=== PATIENT | female | born 1990 | race Caucasian/White ===

== ENCOUNTER 2022-02-26 04:00 | Inpatient (IN) | payer OTHER ==
[2022-02-26] MEDS ORDERED: Succinylcholine 200 MG/10 ml SYRINGE FS ONE ×2 (04:03→04:06)
[2022-02-26] MEDS ORDERED: PROPOFOL 200 MG/20 ML VIAL ONE (04:06)
[2022-02-26] MEDS ORDERED: Propofol 1,000 MG/100 ML VIAL IV ONE (04:12)
[2022-02-26] MEDS ORDERED: Midazolam HCl 2 mg/2 ml Vial ONE ×3 (04:17→04:48)
[2022-02-26] MEDS ORDERED: Fentanyl 100 MCG/2 ML VIAL ONE ×2 (04:17→05:14)
[2022-02-26 04:19] LABS: #Basophils 0.1 thou/uL (0.0-0.2); #Eosinphils 0.1 thou/uL (0.0-0.7); #Lymphocytes 4.5 thou/uL (1.20-3.40); #Monocytes 0.4 thou/uL (0.11-0.59); #Neutrophils 7.7 thou/uL (1.40-6.50); %Basophils 0.8 % (0.0-1.0); %Eosinophils 0.5 % (0.0-10.0); %Lymphocytes 35.3 % (21.0-51.0); %Monocytes 3.3 % (0.0-10.0); %Neutrophils 60.1 % (42.0-75.0); Hemoglobin 12.7 g/dL (12.0-16.0); Mean Corpuscular HGB CONC 32.5 g/dL (32.0-36.0); Mean Corpuscular Hemoglobin 34.4 pg (27.0-31.0); Mean Platelet Volume 8.2 fL (7.4-10.4); Platelet Count 353 thou/uL (130-400); RBC Distribution Width 13.1 % (11.5-14.5); Red Blood Cell (RBC) Count 3.69 mill/uL (4.20-5.40); White Blood Cell (WBC) Count 12.8 thou/uL (4.8-10.8)
[2022-02-26 04:30] LABS: PTT 31.4 sec (22.9-36.1); Prothrombin Time 13.5 sec (12.0-14.7)
[2022-02-26 04:34] LABS: ALT (SGPT) 64 U/L (8-55); AST (SGOT) 57 U/L (5-34); Albumin 3.7 g/dL (3.5-5.0); Alkaline Phosphatase 49 U/L (40-110); Anion Gap 19 mmol/L (10-20); BUN (Urea Nitrogen) 6 mg/dL (7.0-18.7); Bilirubin, Total 0.4 mg/dL (0.2-1.2); Calc. Creatinine Clearance 0 mL/min (70-130); Carbon Dioxide 17 mmol/L (22-29); Chloride 114 mmol/L (98-107); Globulin 2.8 g/dL (2.4-3.5); Glucose 142 mg/dL (70-105); Potassium 3.7 mmol/L (3.5-5.1); Protein, Total 6.5 g/dL (6.0-8.3); Sodium 146 mmol/L (136-145)
[2022-02-26 04:39] LABS: Alcohol 326 mg/dL (Less than 10); Lipase 33 U/L (8-78)
[2022-02-26] MEDS ORDERED: Tranexamic Acid 1,000 MG/10 ML VIAL ONE (05:05)
[2022-02-26 05:21] LABS: Actual Bicarbonate (HCO3a) 15.3 mEq/L (22-28); Analyzer IN Cardio ER; Base Excess (BEa) -8.4 mEq/L (-2.0 to +3.0); CO2 Tension 26.5 mmHg (35.0-45.0); Calcium, Ionized (arterial) 0.98 mmol/L (1.12-1.30); Carboxyhemoglobin (COHb) 0.2 gm% (0.0-3.0); Hemoglobin (Hb) 11.9 g/dL (12.0-16.0); Potassium - ABG Lab 3.65 mmol/L (3.70-5.30); pH, Arterial 7.38 (7.35-7.45)
[2022-02-26 05:24] LABS: ALV-art Gradient 57.075 mmHg (0-20); O2 Tension (PaO2), arterial 622.8 mmHg (80.0-100.0); Puncture Site RBA
[2022-02-26] MEDS ORDERED: Calcium Chloride 1 GM/10 ML Abboject SYRINGE ONE (05:32)
[2022-02-26 05:46] LABS: Bacteria/HPF None Seen HPF (None Seen); Bilirubin Negative (Negative); Blood, Urine 2+ (Negative); Clarity Clear (Clear); Glucose, Urine (Dipstick) Normal (Negative); Ketone, Urine Negative (Negative); Leukocyte Negative Leu/uL (Negative); Nitrite Negative (Negative); Pregnancy Test - Urine (BHCG) Negative (Negative); Pregu Control Background? CLEAR/WHITE (CLR/WHITE); Pregu Control Bar Appear? YES (CONTROL BAR); Protein, Urine (Dipstick) 20 mg/dL (Neg-Trace); Renal Epithelial 0-3 HPF (None Seen); Specific Gravity 1.042 (1.002-1.036); Specific Gravity, Urine 1.042 (1.002-1.036); Squamous Epithelial 0-3 HPF (0-3); Urobilinogen Normal mg/dL (Less than 2); WBC/HPF 0-3 HPF (0-3); pH, Urine 6.5 (5.0-9.0)
[2022-02-26] MEDS ORDERED: Dextrose 5% in Water 1,000 ML IV PRN (06:24)
[2022-02-26] MEDS ORDERED: Dextrose 50% Abboject 50 ML SYRINGE SLOW IVP PRN (06:24)
[2022-02-26] MEDS ORDERED: Ondansetron ODT 4 MG TAB PO PRN (06:24)
[2022-02-26] MEDS ORDERED: Ondansetron PF 4 MG/2 ML Vial IVP PRN ×2 (06:24→06:28)
[2022-02-26] MEDS ORDERED: Ventilator Sedation Protocol 1 EACH FS SCH (06:30)
[2022-02-26] MEDS ORDERED: Lactated Ringer's 1,000 ML IV SCH ×2 (06:30→18:45)
[2022-02-26] MEDS ORDERED: Fentanyl CADD 100 ML IV SCH (06:45)
[2022-02-26] MEDS ORDERED: DISCONTINUE PREVIOUS NARCOTIC PAIN MEDICATIONS AND BENZODIAZEPINES FS SCH (06:45)
[2022-02-26] MEDS ORDERED: Propofol BOLUS 1,000 MG/100 ML VIAL IV PRN (06:45)
[2022-02-26] MEDS ORDERED: Lorazepam 2 MG/ML VIAL SLOW IVP PRN (06:45)
[2022-02-26] MEDS ORDERED: Morphine 2 MG/ML VIAL SLOW IVP PRN (06:45)
[2022-02-26] MEDS ORDERED: Propofol 1,000 MG/100 ML VIAL IV PRN (06:45)
[2022-02-26] MEDS ORDERED: Fentanyl BOLUS 250 ML IVPB PRN (06:45)
[2022-02-26] MEDS ORDERED: fentaNYL Citrate-0.9 % NaCl/PF 100 ML IV SCH (06:45)
[2022-02-26 07:03] LABS: SARS-CoV-2 NAA Rapid Test Not Detected (NotDetected)
[2022-02-26 07:09] LABS: Hemoglobin 12.4 g/dL (12.0-16.0); Mean Corpuscular HGB CONC 33.2 g/dL (32.0-36.0); Mean Corpuscular Hemoglobin 35.5 pg (27.0-31.0); Mean Platelet Volume 8.1 fL (7.4-10.4); Platelet Count 338 thou/uL (130-400); RBC Distribution Width 13.2 % (11.5-14.5); Red Blood Cell (RBC) Count 3.48 mill/uL (4.20-5.40); White Blood Cell (WBC) Count 17.3 thou/uL (4.8-10.8)
[2022-02-26 07:20] LABS: Lactic Acid 3.4 mmol/L (0.5-2.2)
[2022-02-26] MEDS ORDERED: Sodium Chloride 0.9% 1,000 ML IV SCH ×2 (07:45→08:12)
[2022-02-26] MEDS: Famotidine/PF 20 mg/2ml Vial SLOW IVP SCH ×2 (07:49→20:01)
[2022-02-26 07:51] LABS: Actual Bicarbonate (HCO3a) 15.2 mEq/L (22-28); Base Excess (BEa) -8.5 mEq/L (-2.0 to +3.0); CO2 Tension 26.7 mmHg (35.0-45.0); Calcium, Ionized (arterial) 1.12 mmol/L (1.12-1.30); Carboxyhemoglobin (COHb) 0.1 gm% (0.0-3.0); Hemoglobin (Hb) 12.9 g/dL (12.0-16.0); O2 Tension (PaO2), arterial 192.6 mmHg (80.0-100.0); Potassium - ABG Lab 3.39 mmol/L (3.70-5.30); Puncture Site LRA; pH, Arterial 7.37 (7.35-7.45)
[2022-02-26 07:52] LABS: ALV-art Gradient 59.225 mmHg (0-20)
[2022-02-26 08:02] LABS: Magnesium 1.8 mg/dL (1.6-2.6); Phosphorus 2.7 mg/dL (2.3-4.7)
[2022-02-26] MEDS ORDERED: Potassium Phosphate 30 MMOL, Magnesium Sulfate 2 GM in Sodium Chloride 0.9% 250 ML 250 ML IVPB SCH (08:15)
[2022-02-26] MEDS ORDERED: Magnesium 2 GM/50 ML(in water) 2 GM in Premix Bag 1 BAG IVPB SCH (08:15)
[2022-02-26] MEDS: Lactated Ringer's 1,000 ML IV SCH ×3 (08:49→20:01)
[2022-02-26] MEDS: Acetaminophen 325 MG TAB PO SCH ×3 (11:03→23:47)
[2022-02-26 12:46] LABS: Hemoglobin 11.9 g/dL (12.0-16.0); Mean Corpuscular HGB CONC 32.6 g/dL (32.0-36.0); Mean Platelet Volume 8.3 fL (7.4-10.4); Platelet Count 249 thou/uL (130-400); RBC Distribution Width 13.3 % (11.5-14.5); White Blood Cell (WBC) Count 7.9 thou/uL (4.8-10.8)
[2022-02-26] MEDS ORDERED: Iopamidol-370 76% 500 ML 1 ML ONE (13:47)
[2022-02-26 18:26] LABS: Actual Bicarbonate (HCO3a) 17.8 mEq/L (22-28); Base Excess (BEa) -4.9 mEq/L (-2.0 to +3.0); CO2 Tension 26.7 mmHg (35.0-45.0); Calcium, Ionized (arterial) 1.09 mmol/L (1.12-1.30); Carboxyhemoglobin (COHb) 0.3 gm% (0.0-3.0); Hemoglobin (Hb) 12.2 g/dL (12.0-16.0); O2 Tension (PaO2), arterial 195.6 mmHg (80.0-100.0); Potassium - ABG Lab 3.95 mmol/L (3.70-5.30); pH, Arterial 7.44 (7.35-7.45)
[2022-02-26 18:27] LABS: Puncture Site LRA
[2022-02-26 18:28] LABS: ALV-art Gradient 56.225 mmHg (0-20)
[2022-02-26] MEDS: carBAMazepine 200 MG TAB PO SCH (20:01)
[2022-02-27] MEDS: Lactated Ringer's 1,000 ML IV SCH ×2 (01:52→06:33)
[2022-02-27 03:49] LABS: #Lymphocytes 0.6 thou/uL (1.20-3.40); #Monocytes 0.3 thou/uL (0.11-0.59); #Neutrophils 4.4 thou/uL (1.40-6.50); %Eosinophils 0.1 % (0.0-10.0); %Lymphocytes 10.8 % (21.0-51.0); %Monocytes 5.5 % (0.0-10.0); %Neutrophils 83.5 % (42.0-75.0); Hemoglobin 10.6 g/dL (12.0-16.0); Mean Corpuscular HGB CONC 33.7 g/dL (32.0-36.0); Mean Corpuscular Hemoglobin 36.1 pg (27.0-31.0); Mean Platelet Volume 8.2 fL (7.4-10.4); Platelet Count 169 thou/uL (130-400); Red Blood Cell (RBC) Count 2.93 mill/uL (4.20-5.40); White Blood Cell (WBC) Count 5.2 thou/uL (4.8-10.8)
[2022-02-27 04:22] LABS: Anion Gap 12 mmol/L (10-20); BUN (Urea Nitrogen) 13 mg/dL (7.0-18.7); CK (CPK) 3472 U/L (29-168); Calc. Creatinine Clearance 120 mL/min (70-130); Calcium 7.9 mg/dL (7.8-10.44); Carbon Dioxide 23 mmol/L (22-29); Chloride 113 mmol/L (98-107); Glucose 154 mg/dL (70-105); Phosphorus 3.6 mg/dL (2.3-4.7); Sodium 144 mmol/L (136-145)
[2022-02-27] MEDS: Acetaminophen 325 MG TAB PO SCH ×3 (05:17→18:00)
[2022-02-27 06:40] LABS: Actual Bicarbonate (HCO3a) 20.8 mEq/L (22-28); Base Excess (BEa) -3.2 mEq/L (-2.0 to +3.0); CO2 Tension 33.5 mmHg (35.0-45.0); O2 Tension (PaO2), arterial 189.1 mmHg (80.0-100.0); pH, Arterial 7.41 (7.35-7.45)
[2022-02-27 06:41] LABS: Carboxyhemoglobin (COHb) 0.3 gm% (0.0-3.0); Hemoglobin (Hb) 10.3 g/dL (12.0-16.0); Potassium - ABG Lab 3.91 mmol/L (3.70-5.30)
[2022-02-27 06:42] LABS: ALV-art Gradient 54.225 mmHg (0-20); Puncture Site LRA
[2022-02-27] MEDS ORDERED: PHOS-NAK 1 PKT PACK PO SCH (08:00)
[2022-02-27] MEDS ORDERED: carBAMazepine 200 MG TAB PO SCH (08:00)
[2022-02-27] MEDS: Famotidine/PF 20 mg/2ml Vial SLOW IVP SCH (08:18)
[2022-02-27] MEDS ORDERED: Calcium Chloride 13.6 MEQ in Sodium Chloride 0.9% 100 ML IVPB SCH (09:00)
[2022-02-27] MEDS: Folic Acid 1 MG TAB PO SCH (09:00)
[2022-02-27] MEDS: Multivitamin W/ Minerals 1 TAB PO SCH (09:00)
[2022-02-27] MEDS ORDERED: Thiamine 100 MG TAB PO SCH (09:00)
[2022-02-27] MEDS: Thiamine HCl 200 MG/2 ML VIAL SLOW IVP SCH (09:00)
[2022-02-27] MEDS ORDERED: Haloperidol Lactate 5 MG/ML VIAL ONE (12:37)
[2022-02-27] MEDS ORDERED: diphenhydrAMINE 50 MG/ML VIAL ONE (12:40)
[2022-02-27] MEDS ORDERED: Lorazepam 2 MG/ML VIAL ONE ×2 (12:43→13:22)
[2022-02-27] MEDS ORDERED: Oxazepam 10 MG CAP PO SCH ×4 (12:45→22:30)
[2022-02-27] MEDS ORDERED: Dexmedetomidine In 0.9 % NaCl 100 ML IVPB SCH (13:00)
[2022-02-27] MEDS: carBAMazepine 200 MG TAB PO SCH ×3 (13:10→21:12)
[2022-02-27] MEDS ORDERED: diphenhydrAMINE 50 MG/ML VIAL IVP SCH (13:15)
[2022-02-27] MEDS ORDERED: Lorazepam 2 MG/ML VIAL SLOW IVP SCH (13:15)
[2022-02-27] MEDS ORDERED: Haloperidol Lactate 5 MG/ML VIAL SLOW IVP SCH (13:15)
[2022-02-27] MEDS ORDERED: Ziprasidone 20 MG VIAL ONE (13:23)
[2022-02-27] MEDS ORDERED: Ziprasidone 20 MG VIAL IM SCH (13:30)
[2022-02-27] MEDS: Acetaminophen/Codeine 30-300mg Tablet PO PRN ×2 (13:40→22:34)
[2022-02-27 15:33] LABS: Hemoglobin 9.8 g/dL (12.0-16.0); Mean Corpuscular HGB CONC 32.8 g/dL (32.0-36.0); Mean Corpuscular Hemoglobin 35.6 pg (27.0-31.0); Mean Platelet Volume 8.3 fL (7.4-10.4); Platelet Count 135 thou/uL (130-400); RBC Distribution Width 12.9 % (11.5-14.5); Red Blood Cell (RBC) Count 2.75 mill/uL (4.20-5.40); White Blood Cell (WBC) Count 1.1 thou/uL (4.8-10.8)
[2022-02-27 15:44] LABS: Actual Bicarbonate (HCO3a) 19.9 mEq/L (22-28); Base Excess (BEa) -3.3 mEq/L (-2.0 to +3.0); CO2 Tension 29.1 mmHg (35.0-45.0); Calcium, Ionized (arterial) 1.18 mmol/L (1.12-1.30); Carboxyhemoglobin (COHb) 0.3 gm% (0.0-3.0); Hemoglobin (Hb) 10.1 g/dL (12.0-16.0); O2 Tension (PaO2), arterial 83.7 mmHg (80.0-100.0); Potassium - ABG Lab 3.39 mmol/L (3.70-5.30); pH, Arterial 7.45 (7.35-7.45)
[2022-02-27 15:49] LABS: Lactic Acid 4.2 mmol/L (0.5-2.2)
[2022-02-27 15:54] LABS: Band 33 % (5-11); Lymphocytes 19 % (21-51); MDiff Complete? YES; Metamyelocyte 9 % (0-0); Monocytes 5 % (0-10); Myelocyte 1 % (0-0); Neutrophil 33 % (42-75); Platelet Morphology Comment Appears Adequate; Polychromasia SLIGHT = 2-3 cells (100X) (0-2/hpf); Vacuoles SLIGHT
[2022-02-27 15:56] LABS: Anion Gap 14 mmol/L (10-20); BUN (Urea Nitrogen) 15 mg/dL (7.0-18.7); Calc. Creatinine Clearance 113 mL/min (70-130); Calcium 8.5 mg/dL (7.8-10.44); Carbon Dioxide 18 mmol/L (22-29); Chloride 114 mmol/L (98-107); Estimated GFR 109; Glucose 135 mg/dL (70-105); Magnesium 1.7 mg/dL (1.6-2.6); Phosphorus 1.8 mg/dL (2.3-4.7); Potassium 3.7 mmol/L (3.5-5.1); Sodium 142 mmol/L (136-145)
[2022-02-27] MEDS ORDERED: Magnesium 2 GM/50 ML(in water) 2 GM in Premix Bag 1 BAG IVPB SCH (16:00)
[2022-02-27] MEDS ORDERED: Potassium Phosphate 30 MMOL in Sodium Chloride 0.9% 250 ML 250 ML IVPB SCH (16:00)
[2022-02-27 16:12] LABS: ALV-art Gradient 29.655 mmHg (0-20); Puncture Site RRA
[2022-02-27] MEDS ORDERED: Sodium Chloride 0.9% 1,000 ML IV SCH (16:15)
[2022-02-27] MEDS: cloNIDine 0.2 MG TAB PO SCH (18:00)
[2022-02-27] MEDS: Senokot S 8.6-50 MG TAB PO SCH (20:34)
[2022-02-27] MEDS: Famotidine 20 MG TAB PO SCH (20:34)
[2022-02-27 23:52] LABS: Actual Bicarbonate (HCO3a) 17.7 mEq/L (22-28); Base Excess (BEa) -4.6 mEq/L (-2.0 to +3.0); Calcium, Ionized (arterial) 1.18 mmol/L (1.12-1.30); Carboxyhemoglobin (COHb) 0.3 gm% (0.0-3.0); Hemoglobin (Hb) 12.2 g/dL (12.0-16.0); O2 Tension (PaO2), arterial 71.3 mmHg (80.0-100.0); Potassium - ABG Lab 3.87 mmol/L (3.70-5.30); pH, Arterial 7.46 (7.35-7.45)
[2022-02-27 23:53] LABS: CO2 Tension 25.2 mmHg (35.0-45.0); Puncture Site RBR
[2022-02-28] MEDS: Acetaminophen 325 MG TAB PO SCH ×4 (00:15→19:42)
[2022-02-28] MEDS ORDERED: Sodium Chloride 0.9% 1,000 ML IV SCH ×3 (00:30→05:30)
[2022-02-28] MEDS ORDERED: Ventilator Sedation Protocol 1 EACH FS SCH (00:30)
[2022-02-28] MEDS ORDERED: DISCONTINUE PREVIOUS NARCOTIC PAIN MEDICATIONS AND BENZODIAZEPINES FS SCH (00:45)
[2022-02-28] MEDS ORDERED: Fentanyl BOLUS 250 ML IVPB PRN (00:45)
[2022-02-28] MEDS: fentaNYL Citrate-0.9 % NaCl/PF 100 ML IV SCH (01:01)
[2022-02-28 01:07] LABS: Actual Bicarbonate (HCO3a) 17.7 mEq/L (22-28); Base Excess (BEa) -5.8 mEq/L (-2.0 to +3.0); CO2 Tension 28.1 mmHg (35.0-45.0); Calcium, Ionized (arterial) 1.09 mmol/L (1.12-1.30); Carboxyhemoglobin (COHb) 0.3 gm% (0.0-3.0); Hemoglobin (Hb) 9.6 g/dL (12.0-16.0); O2 Tension (PaO2), arterial 76.4 mmHg (80.0-100.0); Potassium - ABG Lab 3.77 mmol/L (3.70-5.30); Puncture Site RBR; pH, Arterial 7.42 (7.35-7.45)
[2022-02-28 01:08] LABS: ALV-art Gradient 244.975 mmHg (0-20)
[2022-02-28] MEDS: cloNIDine 0.2 MG TAB PO SCH ×4 (01:37→19:42)
[2022-02-28 05:12] LABS: Hemoglobin 11.2 g/dL (12.0-16.0); Platelet Count 215 thou/uL (130-400); Red Blood Cell (RBC) Count 3.11 mill/uL (4.20-5.40); White Blood Cell (WBC) Count 2.6 thou/uL (4.8-10.8)
[2022-02-28 05:13] LABS: Band 18 % (5-11); Hypochromia SLIGHT = 6-15 cells (100X) (0-5/hpf); Lymphocytes 34 % (21-51); MDiff Complete? YES; Macrocytosis SLIGHT = 6-15 cells (100X) (0-5/hpf); Monocytes 10 % (0-10); Neutrophil 38 % (42-75); Platelet Morphology Comment Appears Adequate
[2022-02-28] MEDS ORDERED: Calcium Chloride 13.6 MEQ in Sodium Chloride 0.9% 100 ML IVPB SCH ×2 (05:15→22:45)
[2022-02-28] MEDS: carBAMazepine 200 MG TAB PO SCH ×2 (05:16→14:01)
[2022-02-28 05:17] LABS: Anion Gap 14 mmol/L (10-20); BUN (Urea Nitrogen) 18 mg/dL (7.0-18.7); Calc. Creatinine Clearance 119 mL/min (70-130); Calcium 8.2 mg/dL (7.8-10.44); Carbon Dioxide 19 mmol/L (22-29); Chloride 114 mmol/L (98-107); Estimated GFR 116; Glucose 176 mg/dL (70-105); Magnesium 2.2 mg/dL (1.6-2.6); Phosphorus 2.6 mg/dL (2.3-4.7); Potassium 4.5 mmol/L (3.5-5.1); Sodium 142 mmol/L (136-145)
[2022-02-28] MEDS ORDERED: Calcium Chloride 1 GM/10 ML Abboject SYRINGE ONE (05:18)
[2022-02-28] MEDS: Oxazepam 10 MG CAP PO SCH ×4 (05:28→19:43)
[2022-02-28] MEDS: Sodium Chloride 0.9% 1,000 ML IV SCH ×2 (05:29→15:02)
[2022-02-28] MEDS ORDERED: Sodium Phosphate 15 MMOL in Sodium Chloride 0.9% 250 ML 250 ML IVPB SCH (05:30)
[2022-02-28] MEDS ORDERED: Piperacillin/Tazobactam 3.375 GM in Sodium Chloride 0.9% 100 ML IVPB SCH ×2 (08:15→08:45)
[2022-02-28] MEDS ORDERED: Vecuronium 10 MG VIAL IV SCH (08:15)
[2022-02-28] MEDS ORDERED: Midazolam HCl 2 mg/2 ml Vial IVP SCH (08:15)
[2022-02-28 08:32] LABS: Lactic Acid 3.2 mmol/L (0.5-2.2)
[2022-02-28] MEDS: Vasopressin 20 UNIT, Admixture Fee 1 EACH in Sodium Chloride 0.9% 50 ML IV SCH ×2 (08:43→13:45)
[2022-02-28] MEDS ORDERED: Polyethylene Glycol 3350 17 GM Packet PO SCH (09:00)
[2022-02-28] MEDS ORDERED: Saccharomyces boulardii 250 MG CAP PO SCH (09:00)
[2022-02-28] MEDS: Thiamine HCl 200 MG/2 ML VIAL SLOW IVP SCH (09:47)
[2022-02-28] MEDS ORDERED: Sodium Chloride 0.9% 500 ML IV SCH (10:30)
[2022-02-28] MEDS ORDERED: Iopamidol-370 76% 500 ML 1 ML ONE (11:19)
[2022-02-28] MEDS: Multivitamin W/ Minerals 1 TAB PO SCH (11:33)
[2022-02-28] MEDS: Famotidine 20 MG TAB PO SCH ×2 (11:33→21:30)
[2022-02-28] MEDS: Folic Acid 1 MG TAB PO SCH (11:33)
[2022-02-28] MEDS: Senokot S 8.6-50 MG TAB PO SCH ×2 (11:34→21:30)
[2022-02-28 12:08] LABS: Actual Bicarbonate (HCO3a) 16.1 mEq/L (22-28); Base Excess (BEa) -10.8 mEq/L (-2.0 to +3.0); CO2 Tension 39.8 mmHg (35.0-45.0); Calcium, Ionized (arterial) 1.17 mmol/L (1.12-1.30); Carboxyhemoglobin (COHb) 0.3 gm% (0.0-3.0); Hemoglobin (Hb) 11.5 g/dL (12.0-16.0); O2 Tension (PaO2), arterial 66.8 mmHg (80.0-100.0); Potassium - ABG Lab 4.49 mmol/L (3.70-5.30)
[2022-02-28 12:10] LABS: Puncture Site RRA; pH, Arterial 7.23 (7.35-7.45)
[2022-02-28] MEDS: Piperacillin/Tazobactam 3.375 GM in Sodium Chloride 0.9% 100 ML IVPB SCH ×2 (13:21→22:38)
[2022-02-28] MEDS ORDERED: Norepinephrine 8 MG/0.9% NS 250 ML ONE (13:52)
[2022-02-28] MEDS ORDERED: Furosemide 40 MG/4 ML VIAL SLOW IVP SCH (14:15)
[2022-02-28] MEDS ORDERED: Midazolam In 0.9 % NaCl/PF 100 ML IVPB SCH (14:15)
[2022-02-28] MEDS ORDERED: Norepinephrine 8 MG/0.9% NS 250 ML IVPB SCH (14:30)
[2022-02-28] MEDS ORDERED: fentaNYL Citrate/PF 100 MCG/2 ML SYRINGE ONE ×2 (18:06→18:07)
[2022-02-28] MEDS ORDERED: Midazolam HCl 5 mg/5 ml Vial ONE (18:06)
[2022-02-28] MEDS ORDERED: Dexmedetomidine 200 MCG/2 ML VIAL ONE (18:06)
[2022-02-28] MEDS ORDERED: Vecuronium 10 MG VIAL ONE (18:23)
[2022-02-28] MEDS ORDERED: Rocuronium Bromide 10 MG/ML (10ML VIAL) ONE (18:23)
[2022-02-28] MEDS ORDERED: Lactated Ringer's 1,000 ML IV SCH (21:45)
[2022-02-28 22:23] LABS: Base Excess (BEa) -14.9 mEq/L (-2.0 to +3.0); CO2 Tension 38.2 mmHg (35.0-45.0); Calcium, Ionized (arterial) 1.05 mmol/L (1.12-1.30); Hemoglobin (Hb) 11.7 g/dL (12.0-16.0); O2 Tension (PaO2), arterial 237.9 mmHg (80.0-100.0)
[2022-02-28 22:28] LABS: Puncture Site Arterial Line; pH, Arterial 7.15 (7.35-7.45)
[2022-02-28] MEDS ORDERED: Sodium Bicarb 50 MEQ/50 ML VIAL IVP SCH ×2 (22:30)
[2022-02-28 22:59] LABS: Lactic Acid 5.9 mmol/L (0.5-2.2)
[2022-02-28 23:10] LABS: ALT (SGPT) 49 U/L (8-55); AST (SGOT) 114 U/L (5-34); Albumin 2.2 g/dL (3.5-5.0); Alkaline Phosphatase 30 U/L (40-110); Anion Gap 17 mmol/L (10-20); BUN (Urea Nitrogen) 28 mg/dL (7.0-18.7); Bilirubin, Total 0.8 mg/dL (0.2-1.2); CK (CPK) 2904 U/L (29-168); Calc. Creatinine Clearance 67 mL/min (70-130); Calcium 7.1 mg/dL (7.8-10.44); Carbon Dioxide 12 mmol/L (22-29); Chloride 118 mmol/L (98-107); Estimated GFR 54; Globulin 1.7 g/dL (2.4-3.5); Glucose 138 mg/dL (70-105); Phosphorus 6.5 mg/dL (2.3-4.7); Potassium 4.8 mmol/L (3.5-5.1); Protein, Total 3.9 g/dL (6.0-8.3); Sodium 142 mmol/L (136-145)
[2022-02-28 23:12] LABS: Band 35 % (5-11); Hemoglobin 11.2 g/dL (12.0-16.0); Lymphocytes 16 % (21-51); MDiff Complete? YES; Mean Corpuscular HGB CONC 31.1 g/dL (32.0-36.0); Mean Corpuscular Hemoglobin 35.3 pg (27.0-31.0); Mean Platelet Volume 9.7 fL (7.4-10.4); Metamyelocyte 15 % (0-0); Monocytes 5 % (0-10); Myelocyte 10 % (0-0); Neutrophil 19 % (42-75); Nucleated RBC 4 % (0); Platelet Count 250 thou/uL (130-400); RBC Distribution Width 13.3 % (11.5-14.5); Red Blood Cell (RBC) Count 3.18 mill/uL (4.20-5.40); White Blood Cell (WBC) Count 7.4 thou/uL (4.8-10.8)
[2022-03-01 00:04] LABS: Magnesium 2.2 mg/dL (1.6-2.6)
[2022-03-01] MEDS ORDERED: Acetaminophen 650 MG Suppository PR PRN (01:43)
[2022-03-01] MEDS ORDERED: Sodium Chloride 0.9% 1,000 ML IV SCH (01:45)
[2022-03-01] MEDS: Sodium Chloride 0.9% 1,000 ML IV SCH (02:00)
[2022-03-01] MEDS ORDERED: Sodium Bicarbonate 150 MEQ in Dextrose 5% in Water 1,000 ML IV SCH (02:15)
[2022-03-01] MEDS: fentaNYL Citrate-0.9 % NaCl/PF 100 ML IV SCH (03:32)
[2022-03-01] MEDS: Piperacillin/Tazobactam 3.375 GM in Sodium Chloride 0.9% 100 ML IVPB SCH ×3 (05:23→21:11)
[2022-03-01] MEDS: Vasopressin 20 UNIT, Admixture Fee 1 EACH in Sodium Chloride 0.9% 50 ML IV SCH ×2 (05:32→20:07)
[2022-03-01 05:40] LABS: Lactic Acid 4.1 mmol/L (0.5-2.2)
[2022-03-01 05:41] LABS: Anion Gap 17 mmol/L (10-20); BUN (Urea Nitrogen) 30 mg/dL (7.0-18.7); CK (CPK) 2574 U/L (29-168); Calc. Creatinine Clearance 73 mL/min (70-130); Calcium 7.5 mg/dL (7.8-10.44); Carbon Dioxide 17 mmol/L (22-29); Chloride 117 mmol/L (98-107); Estimated GFR 60; Glucose 140 mg/dL (70-105); Magnesium 2.2 mg/dL (1.6-2.6); Phosphorus 5.2 mg/dL (2.3-4.7); Potassium 4.6 mmol/L (3.5-5.1); Sodium 146 mmol/L (136-145)
[2022-03-01 06:29] LABS: Band 37 % (5-11); Hemoglobin 10.6 g/dL (12.0-16.0); Lymphocytes 9 % (21-51); MDiff Complete? YES; Mean Corpuscular HGB CONC 31.4 g/dL (32.0-36.0); Mean Corpuscular Hemoglobin 34.9 pg (27.0-31.0); Mean Platelet Volume 9.4 fL (7.4-10.4); Metamyelocyte 20 % (0-0); Monocytes 8 % (0-10); Myelocyte 3 % (0-0); Neutrophil 23 % (42-75); Platelet Count 184 thou/uL (130-400); RBC Distribution Width 13.4 % (11.5-14.5); Red Blood Cell (RBC) Count 3.05 mill/uL (4.20-5.40); White Blood Cell (WBC) Count 8.2 thou/uL (4.8-10.8)
[2022-03-01 07:37] LABS: Actual Bicarbonate (HCO3a) 16.9 mEq/L (22-28); Base Excess (BEa) -6.9 mEq/L (-2.0 to +3.0); CO2 Tension 28.9 mmHg (35.0-45.0); Calcium, Ionized (arterial) 1.03 mmol/L (1.12-1.30); Carboxyhemoglobin (COHb) 0.3 gm% (0.0-3.0); Hemoglobin (Hb) 10.9 g/dL (12.0-16.0); O2 Tension (PaO2), arterial 253.4 mmHg (80.0-100.0); Potassium - ABG Lab 4.19 mmol/L (3.70-5.30); pH, Arterial 7.39 (7.35-7.45)
[2022-03-01 07:48] LABS: Puncture Site Arterial Line
[2022-03-01 07:49] LABS: ALV-art Gradient 423.475 mmHg (0-20)
[2022-03-01] MEDS ORDERED: Calcium Chloride 13.6 MEQ in Sodium Chloride 0.9% 100 ML IVPB SCH (08:00)
[2022-03-01] MEDS ORDERED: Dexmedetomidine In 0.9 % NaCl 100 ML IVPB SCH (09:45)
[2022-03-01] MEDS: Thiamine HCl 200 MG/2 ML VIAL SLOW IVP SCH (10:08)
[2022-03-01] MEDS: Pantoprazole 40 MG VIAL IVP SCH ×2 (10:08→21:12)
[2022-03-01] MEDS: Lactated Ringer's 1,000 ML IV SCH ×2 (10:48→18:30)
[2022-03-01 13:46] LABS: Lactic Acid 3.5 mmol/L (0.5-2.2)
[2022-03-01 14:06] LABS: Actual Bicarbonate (HCO3a) 20.3 mEq/L (22-28); CO2 Tension 33.9 mmHg (35.0-45.0); Calcium, Ionized (arterial) 1.08 mmol/L (1.12-1.30); Carboxyhemoglobin (COHb) 0.3 gm% (0.0-3.0); O2 Tension (PaO2), arterial 287.5 mmHg (80.0-100.0)
[2022-03-01 14:08] LABS: ALV-art Gradient 311.825 mmHg (0-20); Puncture Site Arterial Line
[2022-03-01 20:36] LABS: Lactic Acid 2.3 mmol/L (0.5-2.2)
[2022-03-01 20:44] LABS: Anion Gap 15 mmol/L (10-20); BUN (Urea Nitrogen) 28 mg/dL (7.0-18.7); Calc. Creatinine Clearance 112 mL/min (70-130); Calcium 7.9 mg/dL (7.8-10.44); Carbon Dioxide 21 mmol/L (22-29); Chloride 116 mmol/L (98-107); Estimated GFR 99; Glucose 103 mg/dL (70-105); Magnesium 2.4 mg/dL (1.6-2.6); Phosphorus 2.8 mg/dL (2.3-4.7); Potassium 4.1 mmol/L (3.5-5.1); Sodium 148 mmol/L (136-145)
[2022-03-01] MEDS ORDERED: Sodium Phosphate 15 MMOL in Sodium Chloride 0.9% 250 ML 250 ML IVPB SCH (21:00)
[2022-03-01 21:15] LABS: Band 42 % (5-11); Hemoglobin 7.7 g/dL (12.0-16.0); Lymphocytes 11 % (21-51); MDiff Complete? YES; Macrocytosis MODERATE=16-30 cells (100X) (0-5/hpf); Mean Corpuscular HGB CONC 32.1 g/dL (32.0-36.0); Mean Platelet Volume 8.7 fL (7.4-10.4); Metamyelocyte 4 % (0-0); Monocytes 2 % (0-10); Myelocyte 1 % (0-0); Neutrophil 40 % (42-75); Platelet Count 80 thou/uL (130-400); Platelet Morphology Comment Appears Decreased; RBC Distribution Width 13.2 % (11.5-14.5); Red Blood Cell (RBC) Count 2.19 mill/uL (4.20-5.40); White Blood Cell (WBC) Count 6.8 thou/uL (4.8-10.8)
[2022-03-02 03:38] LABS: INR-International Normal Ratio 1.4; PTT 52.4 sec (22.9-36.1)
[2022-03-02 03:49] LABS: Lactic Acid 1.5 mmol/L (0.5-2.2)
[2022-03-02 03:52] LABS: Anion Gap 14 mmol/L (10-20); BUN (Urea Nitrogen) 28 mg/dL (7.0-18.7); Calc. Creatinine Clearance 122 mL/min (70-130); Calcium 8.2 mg/dL (7.8-10.44); Carbon Dioxide 21 mmol/L (22-29); Chloride 114 mmol/L (98-107); Estimated GFR 110; Glucose 107 mg/dL (70-105); Magnesium 2.6 mg/dL (1.6-2.6); Phosphorus 2.2 mg/dL (2.3-4.7); Potassium 3.8 mmol/L (3.5-5.1); Sodium 145 mmol/L (136-145)
[2022-03-02] MEDS: Lactated Ringer's 1,000 ML IV SCH ×2 (04:05→14:30)
[2022-03-02] MEDS: Piperacillin/Tazobactam 3.375 GM in Sodium Chloride 0.9% 100 ML IVPB SCH ×3 (04:12→21:20)
[2022-03-02 05:24] LABS: Band 32 % (5-11); Hemoglobin 8.5 g/dL (12.0-16.0); Lymphocytes 9 % (21-51); MDiff Complete? YES; Mean Corpuscular HGB CONC 33.3 g/dL (32.0-36.0); Mean Corpuscular Hemoglobin 35.3 pg (27.0-31.0); Mean Platelet Volume 9.7 fL (7.4-10.4); Metamyelocyte 1 % (0-0); Monocytes 2 % (0-10); Myelocyte 2 % (0-0); Neutrophil 54 % (42-75); Platelet Count 76 thou/uL (130-400); Platelet Morphology Comment Appears Decreased; RBC Distribution Width 14.3 % (11.5-14.5)
[2022-03-02] MEDS ORDERED: Midazolam HCl 2 mg/2 ml Vial ONE (06:45)
[2022-03-02] MEDS ORDERED: fentaNYL Citrate/PF 100 MCG/2 ML SYRINGE ONE (06:45)
[2022-03-02] MEDS: Vasopressin 20 UNIT, Admixture Fee 1 EACH in Sodium Chloride 0.9% 50 ML IV SCH (07:32)
[2022-03-02] MEDS ORDERED: Rocuronium Bromide 10 MG/ML (10ML VIAL) ONE (07:41)
[2022-03-02] MEDS ORDERED: Potassium Phosphate 30 MMOL in Sodium Chloride 0.9% 250 ML 250 ML IVPB SCH ×2 (08:45→22:30)
[2022-03-02] MEDS ORDERED: Thiamine 100 MG TAB PO SCH ×2 (09:00)
[2022-03-02 11:31] LABS: Actual Bicarbonate (HCO3a) 22.3 mEq/L (22-28); Base Excess (BEa) -1.6 mEq/L (-2.0 to +3.0); CO2 Tension 33.7 mmHg (35.0-45.0); Calcium, Ionized (arterial) 1.07 mmol/L (1.12-1.30); Carboxyhemoglobin (COHb) 0.7 gm% (0.0-3.0); Hemoglobin (Hb) 8.5 g/dL (12.0-16.0); O2 Tension (PaO2), arterial 145.8 mmHg (80.0-100.0); Potassium - ABG Lab 3.69 mmol/L (3.70-5.30); pH, Arterial 7.44 (7.35-7.45)
[2022-03-02 11:35] LABS: ALV-art Gradient 168.575 mmHg (0-20); Puncture Site Arterial Line
[2022-03-02] MEDS: Pantoprazole 40 MG VIAL IVP SCH ×3 (12:20→21:21)
[2022-03-02 14:18] LABS: Glucose POC Confirmation 99 mg/dl (70-105)
[2022-03-02] MEDS: Fentanyl CADD 100 ML IV SCH (15:01)
[2022-03-02 21:01] LABS: Hemoglobin 8.6 g/dL (12.0-16.0); Mean Corpuscular HGB CONC 32.9 g/dL (32.0-36.0); Mean Corpuscular Hemoglobin 34.7 pg (27.0-31.0); Mean Platelet Volume 9.6 fL (7.4-10.4); Platelet Count 64 thou/uL (130-400); RBC Distribution Width 14.5 % (11.5-14.5); Red Blood Cell (RBC) Count 2.47 mill/uL (4.20-5.40); White Blood Cell (WBC) Count 9.9 thou/uL (4.8-10.8)
[2022-03-02 21:16] LABS: ALT (SGPT) 39 U/L (8-55); AST (SGOT) 103 U/L (5-34); Albumin 2.3 g/dL (3.5-5.0); Alkaline Phosphatase 56 U/L (40-110); Anion Gap 14 mmol/L (10-20); BUN (Urea Nitrogen) 19 mg/dL (7.0-18.7); Bilirubin, Total 3.2 mg/dL (0.2-1.2); Calc. Creatinine Clearance 124 mL/min (70-130); Calcium 8.1 mg/dL (7.8-10.44); Carbon Dioxide 23 mmol/L (22-29); Chloride 119 mmol/L (98-107); Estimated GFR 120; Globulin 2.3 g/dL (2.4-3.5); Glucose 119 mg/dL (70-105); Magnesium 2.4 mg/dL (1.6-2.6); Potassium 3.7 mmol/L (3.5-5.1); Protein, Total 4.6 g/dL (6.0-8.3); Sodium 152 mmol/L (136-145)
[2022-03-02] MEDS: Oxazepam 10 MG CAP PO SCH (21:23)
[2022-03-02 21:27] LABS: Band 20 % (5-11); Lymphocytes 5 % (21-51); MDiff Complete? YES; Monocytes 3 % (0-10); Neutrophil 72 % (42-75); Platelet Morphology Comment Appears Decreased; Toxic Granulation SLIGHT
[2022-03-02] MEDS: Dextrose 5 %-0.45 % NaCl 1,000 ML IV SCH (21:47)
[2022-03-03] MEDS: Oxazepam 10 MG CAP PO SCH ×4 (03:50→20:34)
[2022-03-03 04:40] LABS: Band 30 % (5-11); Hemoglobin 8.1 g/dL (12.0-16.0); Lymphocytes 6 % (21-51); MDiff Complete? YES; Mean Corpuscular HGB CONC 32.8 g/dL (32.0-36.0); Mean Corpuscular Hemoglobin 35.2 pg (27.0-31.0); Mean Platelet Volume 9.4 fL (7.4-10.4); Monocytes 6 % (0-10); Neutrophil 58 % (42-75); Platelet Count 55 thou/uL (130-400); Platelet Morphology Comment Appears Decreased; RBC Distribution Width 14.5 % (11.5-14.5); Red Blood Cell (RBC) Count 2.29 mill/uL (4.20-5.40); White Blood Cell (WBC) Count 9.4 thou/uL (4.8-10.8)
[2022-03-03 04:42] LABS: Anion Gap 15 mmol/L (10-20); BUN (Urea Nitrogen) 20 mg/dL (7.0-18.7); Calc. Creatinine Clearance 126 mL/min (70-130); Calcium 7.8 mg/dL (7.8-10.44); Carbon Dioxide 23 mmol/L (22-29); Chloride 119 mmol/L (98-107); Estimated GFR 120; Glucose 174 mg/dL (70-105); Magnesium 2.5 mg/dL (1.6-2.6); Phosphorus 3.1 mg/dL (2.3-4.7); Potassium 3.9 mmol/L (3.5-5.1); Sodium 153 mmol/L (136-145)
[2022-03-03] MEDS: Piperacillin/Tazobactam 3.375 GM in Sodium Chloride 0.9% 100 ML IVPB SCH ×3 (05:48→20:34)
[2022-03-03] MEDS ORDERED: Potassium Phosphate 15 MMOL in Sodium Chloride 0.9% 250 ML 250 ML IVPB SCH (08:00)
[2022-03-03] MEDS: Pantoprazole 40 MG VIAL IVP SCH ×2 (09:48→20:34)
[2022-03-03] MEDS: Dextrose 5 %-0.45 % NaCl 1,000 ML IV SCH ×2 (09:52→18:25)
[2022-03-03 11:57] LABS: Actual Bicarbonate (HCO3a) 24.1 mEq/L (22-28); Base Excess (BEa) 0.7 mEq/L (-2.0 to +3.0); CO2 Tension 33.3 mmHg (35.0-45.0); Calcium, Ionized (arterial) 1.03 mmol/L (1.12-1.30); Carboxyhemoglobin (COHb) 0.3 gm% (0.0-3.0); Hemoglobin (Hb) 8.4 g/dL (12.0-16.0); O2 Tension (PaO2), arterial 125.1 mmHg (80.0-100.0); Potassium - ABG Lab 3.41 mmol/L (3.70-5.30); pH, Arterial 7.48 (7.35-7.45)
[2022-03-03 11:58] LABS: ALV-art Gradient 118.475 mmHg (0-20); Puncture Site Arterial Line
[2022-03-03] MEDS ORDERED: Dextrose 5% in Water 1,000 ML IV PRN (12:30)
[2022-03-03] MEDS ORDERED: Insulin Regular 300 UNITS/3 ML VIAL SC PRN (12:30)
[2022-03-03] MEDS ORDERED: Dextrose 50% Abboject 50 ML SYRINGE IVP PRN (12:30)
[2022-03-03] MEDS: Acetaminophen 500 MG TAB PO PRN (22:45)
[2022-03-04] MEDS ORDERED: Fentanyl CADD 100 ML ONE (02:55)
[2022-03-04] MEDS: Fentanyl CADD 100 ML IV SCH (02:59)
[2022-03-04] MEDS: Oxazepam 10 MG CAP PO SCH ×4 (03:48→21:01)
[2022-03-04] MEDS: Dextrose 5 %-0.45 % NaCl 1,000 ML IV SCH ×2 (03:48→11:27)
[2022-03-04 04:30] LABS: Anion Gap 11 mmol/L (10-20); BUN (Urea Nitrogen) 17 mg/dL (7.0-18.7); Calc. Creatinine Clearance 132 mL/min (70-130); Calcium 7.6 mg/dL (7.8-10.44); Carbon Dioxide 27 mmol/L (22-29); Chloride 119 mmol/L (98-107); Estimated GFR 121; Glucose 149 mg/dL (70-105); Magnesium 2.2 mg/dL (1.6-2.6); Phosphorus Less than 1.0 mg/dL (2.3-4.7); Potassium 3.2 mmol/L (3.5-5.1); Sodium 154 mmol/L (136-145)
[2022-03-04 04:35] LABS: Hemoglobin 8.2 g/dL (12.0-16.0); Mean Corpuscular HGB CONC 34.1 g/dL (32.0-36.0); Mean Corpuscular Hemoglobin 36.1 pg (27.0-31.0); Mean Platelet Volume 10.2 fL (7.4-10.4); Platelet Count 55 thou/uL (130-400); RBC Distribution Width 14.5 % (11.5-14.5); Red Blood Cell (RBC) Count 2.27 mill/uL (4.20-5.40); White Blood Cell (WBC) Count 10.6 thou/uL (4.8-10.8)
[2022-03-04] MEDS: Piperacillin/Tazobactam 3.375 GM in Sodium Chloride 0.9% 100 ML IVPB SCH ×3 (04:37→21:01)
[2022-03-04] MEDS ORDERED: Potassium Phosphate 30 MMOL in Sodium Chloride 0.9% 250 ML 250 ML IVPB SCH ×2 (05:00→17:45)
[2022-03-04] MEDS: Acetaminophen 500 MG TAB PO PRN ×2 (05:50→13:39)
[2022-03-04 06:33] LABS: Band 29 % (5-11); Lymphocytes 14 % (21-51); MDiff Complete? YES; Monocytes 3 % (0-10); Neutrophil 54 % (42-75); Platelet Morphology Comment Appears Decreased
[2022-03-04] MEDS: Pantoprazole 40 MG VIAL IVP SCH ×2 (10:11→21:01)
[2022-03-04 19:25] LABS: Hemoglobin 8.9 g/dL (12.0-16.0); Mean Corpuscular HGB CONC 33.2 g/dL (32.0-36.0); Mean Corpuscular Hemoglobin 35.4 pg (27.0-31.0); Mean Platelet Volume 9.8 fL (7.4-10.4); Platelet Count 80 thou/uL (130-400); RBC Distribution Width 14.3 % (11.5-14.5); Red Blood Cell (RBC) Count 2.51 mill/uL (4.20-5.40); White Blood Cell (WBC) Count 13.7 thou/uL (4.8-10.8)
[2022-03-04 19:42] LABS: Band 5 % (5-11); Lymphocytes 10 % (21-51); MDiff Complete? YES; Macrocytosis SLIGHT = 6-15 cells (100X) (0-5/hpf); Monocytes 3 % (0-10); Myelocyte 1 % (0-0); Neutrophil 81 % (42-75); Nucleated RBC 1 % (0); Platelet Morphology Comment Appears Decreased; Polychromasia SLIGHT = 2-3 cells (100X) (0-2/hpf)
[2022-03-04 19:51] LABS: Anion Gap 14 mmol/L (10-20); BUN (Urea Nitrogen) 16 mg/dL (7.0-18.7); Calc. Creatinine Clearance 158 mL/min (70-130); Calcium 7.5 mg/dL (7.8-10.44); Carbon Dioxide 26 mmol/L (22-29); Chloride 117 mmol/L (98-107); Estimated GFR 126; Glucose 131 mg/dL (70-105); Magnesium 2.1 mg/dL (1.6-2.6); Phosphorus 3.5 mg/dL (2.3-4.7); Potassium 3.6 mmol/L (3.5-5.1); Sodium 153 mmol/L (136-145)
[2022-03-04] MEDS ORDERED: Potassium Phosphate 15 MMOL in Sodium Chloride 0.9% 250 ML 250 ML IVPB SCH (20:00)
[2022-03-05] MEDS: Dextrose 5 %-0.45 % NaCl 1,000 ML IV SCH ×2 (00:20→11:24)
[2022-03-05] MEDS: Acetaminophen 500 MG TAB PO SCH ×4 (00:20→18:13)
[2022-03-05] MEDS: Oxazepam 10 MG CAP PO SCH ×4 (03:14→20:36)
[2022-03-05 05:00] LABS: Anion Gap 10 mmol/L (10-20); BUN (Urea Nitrogen) 17 mg/dL (7.0-18.7); Calc. Creatinine Clearance 161 mL/min (70-130); Calcium 7.4 mg/dL (7.8-10.44); Carbon Dioxide 27 mmol/L (22-29); Chloride 116 mmol/L (98-107); Estimated GFR 127; Glucose 147 mg/dL (70-105); Phosphorus 2.7 mg/dL (2.3-4.7); Potassium 3.4 mmol/L (3.5-5.1); Sodium 150 mmol/L (136-145)
[2022-03-05] MEDS: Piperacillin/Tazobactam 3.375 GM in Sodium Chloride 0.9% 100 ML IVPB SCH ×3 (05:43→20:37)
[2022-03-05 06:35] LABS: Band 14 % (5-11); Eosinophils 1 % (0-10); Hemoglobin 7.7 g/dL (12.0-16.0); Lymphocytes 7 % (21-51); MDiff Complete? YES; Macrocytosis SLIGHT = 6-15 cells (100X) (0-5/hpf); Mean Corpuscular HGB CONC 32.1 g/dL (32.0-36.0); Mean Corpuscular Hemoglobin 34.5 pg (27.0-31.0); Mean Platelet Volume 10.2 fL (7.4-10.4); Monocytes 3 % (0-10); Neutrophil 75 % (42-75); Platelet Count 87 thou/uL (130-400); Platelet Morphology Comment Appears Decreased; RBC Distribution Width 14.3 % (11.5-14.5); Red Blood Cell (RBC) Count 2.24 mill/uL (4.20-5.40); White Blood Cell (WBC) Count 11.1 thou/uL (4.8-10.8)
[2022-03-05] MEDS ORDERED: Potassium Phosphate 30 MMOL in Sodium Chloride 0.9% 250 ML 250 ML IVPB SCH (07:00)
[2022-03-05 07:55] LABS: Base Excess (BEa) 1.6 mEq/L (-2.0 to +3.0); Calcium, Ionized (arterial) 0.99 mmol/L (1.12-1.30); Carboxyhemoglobin (COHb) 0.3 gm% (0.0-3.0); Hemoglobin (Hb) 7.9 g/dL (12.0-16.0); O2 Tension (PaO2), arterial 139.5 mmHg (80.0-100.0); Potassium - ABG Lab 3.55 mmol/L (3.70-5.30)
[2022-03-05 07:59] LABS: CO2 Tension 24.6 mmHg (35.0-45.0); Puncture Site RRA; pH, Arterial 7.59 (7.35-7.45)
[2022-03-05] MEDS: Pantoprazole 40 MG VIAL IVP SCH ×2 (08:53→20:37)
[2022-03-05] MEDS ORDERED: Calcium Chloride 13.6 MEQ in Sodium Chloride 0.9% 100 ML IVPB SCH ×2 (10:00→18:15)
[2022-03-05] MEDS ORDERED: Furosemide 20 MG/2 ML VIAL SLOW IVP SCH (10:00)
[2022-03-05] MEDS ORDERED: Fentanyl CADD 100 ML ONE (19:54)
[2022-03-06] MEDS: Acetaminophen 500 MG TAB PO SCH ×2 (00:24→07:25)
[2022-03-06] MEDS: Oxazepam 10 MG CAP PO SCH ×4 (03:32→20:18)
[2022-03-06 04:30] LABS: Anion Gap 11 mmol/L (10-20); BUN (Urea Nitrogen) 20 mg/dL (7.0-18.7); Calc. Creatinine Clearance 162 mL/min (70-130); Calcium 8.3 mg/dL (7.8-10.44); Carbon Dioxide 27 mmol/L (22-29); Chloride 113 mmol/L (98-107); Estimated GFR 127; Glucose 147 mg/dL (70-105); Magnesium 1.7 mg/dL (1.6-2.6); Phosphorus 2.8 mg/dL (2.3-4.7); Potassium 3.8 mmol/L (3.5-5.1); Sodium 147 mmol/L (136-145)
[2022-03-06] MEDS: Piperacillin/Tazobactam 3.375 GM in Sodium Chloride 0.9% 100 ML IVPB SCH ×3 (04:49→20:18)
[2022-03-06 05:17] LABS: Band 31 % (5-11); Hemoglobin 8.9 g/dL (12.0-16.0); Lymphocytes 17 % (21-51); MDiff Complete? YES; Mean Corpuscular HGB CONC 31.4 g/dL (32.0-36.0); Mean Corpuscular Hemoglobin 33.8 pg (27.0-31.0); Monocytes 2 % (0-10); Neutrophil 50 % (42-75); Platelet Count 165 thou/uL (130-400); RBC Distribution Width 14.1 % (11.5-14.5); Red Blood Cell (RBC) Count 2.64 mill/uL (4.20-5.40); White Blood Cell (WBC) Count 19.1 thou/uL (4.8-10.8)
[2022-03-06] MEDS ORDERED: Dexmedetomidine 1,000 MCG in Sodium Chloride 0.9% 250 ML 240 ML IVPB SCH (07:30)
[2022-03-06] MEDS: Pantoprazole 40 MG VIAL IVP SCH ×2 (07:44→20:19)
[2022-03-06] MEDS ORDERED: Magnesium 2 GM/50 ML(in water) 3 GM in Premix Bag 1 BAG IVPB SCH (07:45)
[2022-03-06] MEDS ORDERED: Potassium Phosphate 30 MMOL, Magnesium Sulfate 3 GM in Sodium Chloride 0.9% 250 ML 250 ML IVPB SCH (07:45)
[2022-03-06] MEDS: Acetaminophen/Codeine 30-300mg Tablet PO SCH ×2 (11:16→17:05)
[2022-03-06] MEDS: Acetaminophen 325 MG TAB PO SCH ×2 (11:17→17:06)
[2022-03-06] MEDS ORDERED: Morphine 2 MG/ML VIAL SLOW IVP PRN (13:29)
[2022-03-06] MEDS ORDERED: Fentanyl 100 MCG/2 ML VIAL SLOW IVP SCH (13:37)
[2022-03-06] MEDS ORDERED: Fentanyl 100 MCG/2 ML VIAL ONE (13:37)
[2022-03-06] MEDS ORDERED: Furosemide 40 MG/4 ML VIAL ONE (13:37)
[2022-03-06] MEDS ORDERED: Furosemide 20 MG/2 ML VIAL SLOW IVP SCH (13:45)
[2022-03-06 18:17] LABS: Anion Gap 12 mmol/L (10-20); BUN (Urea Nitrogen) 17 mg/dL (7.0-18.7); Calc. Creatinine Clearance 161 mL/min (70-130); Calcium 7.8 mg/dL (7.8-10.44); Carbon Dioxide 27 mmol/L (22-29); Chloride 112 mmol/L (98-107); Estimated GFR 126; Glucose 151 mg/dL (70-105); Potassium 3.6 mmol/L (3.5-5.1); Sodium 147 mmol/L (136-145)
[2022-03-06 18:18] LABS: Magnesium 2.2 mg/dL (1.6-2.6)
[2022-03-06] MEDS: Morphine 2 MG/ML VIAL SLOW IVP PRN (21:46)
[2022-03-06] MEDS: cloNIDine 0.1 MG TAB PO SCH (23:28)
[2022-03-07] MEDS: Acetaminophen 325 MG TAB PO SCH ×5 (00:07→23:48)
[2022-03-07] MEDS: Acetaminophen/Codeine 30-300mg Tablet PO SCH ×5 (00:08→23:48)
[2022-03-07] MEDS: cloNIDine 0.1 MG TAB PO SCH ×5 (00:10→23:50)
[2022-03-07] MEDS: Oxazepam 10 MG CAP PO SCH ×4 (02:56→21:45)
[2022-03-07 04:24] LABS: Hemoglobin 7.8 g/dL (12.0-16.0); Mean Corpuscular HGB CONC 32.9 g/dL (32.0-36.0); Mean Platelet Volume 9.8 fL (7.4-10.4); Platelet Count 228 thou/uL (130-400); RBC Distribution Width 13.7 % (11.5-14.5); Red Blood Cell (RBC) Count 2.23 mill/uL (4.20-5.40); White Blood Cell (WBC) Count 15.8 thou/uL (4.8-10.8)
[2022-03-07 04:42] LABS: Band 14 % (5-11); Lymphocytes 8 % (21-51); MDiff Complete? YES; Metamyelocyte 1 % (0-0); Monocytes 2 % (0-10); Neutrophil 75 % (42-75)
[2022-03-07] MEDS: Piperacillin/Tazobactam 3.375 GM in Sodium Chloride 0.9% 100 ML IVPB SCH ×3 (04:45→21:45)
[2022-03-07 04:46] LABS: Anion Gap 10 mmol/L (10-20); BUN (Urea Nitrogen) 18 mg/dL (7.0-18.7); Calc. Creatinine Clearance 173 mL/min (70-130); Calcium 7.9 mg/dL (7.8-10.44); Carbon Dioxide 28 mmol/L (22-29); Chloride 112 mmol/L (98-107); Estimated GFR 128; Glucose 140 mg/dL (70-105); Magnesium 2.1 mg/dL (1.6-2.6); Phosphorus 2.4 mg/dL (2.3-4.7); Potassium 3.7 mmol/L (3.5-5.1); Sodium 146 mmol/L (136-145)
[2022-03-07] MEDS: Morphine 2 MG/ML VIAL SLOW IVP PRN ×3 (07:11→19:39)
[2022-03-07] MEDS: Ferrous Sulfate 325 MG TAB PO SCH ×2 (08:07→18:23)
[2022-03-07] MEDS: Ascorbic Acid 500 mg Chewable Tablet PO SCH ×2 (08:07→18:23)
[2022-03-07] MEDS: Acetaminophen/Codeine 30-300mg Tablet PO PRN (08:07)
[2022-03-07] MEDS: Pantoprazole 40 MG VIAL IVP SCH (09:04)
[2022-03-07] MEDS: Enoxaparin Sodium 40 MG/0.4 ML SYRINGE SC SCH (09:05)
[2022-03-07] MEDS ORDERED: Furosemide 40 MG/4 ML VIAL ONE (19:30)
[2022-03-07] MEDS ORDERED: Furosemide 20 MG/2 ML VIAL SLOW IVP SCH (20:00)
[2022-03-08] MEDS: Morphine 2 MG/ML VIAL SLOW IVP PRN (03:19)
[2022-03-08] MEDS: Oxazepam 10 MG CAP PO SCH ×4 (03:23→20:32)
[2022-03-08] MEDS: Acetaminophen/Codeine 30-300mg Tablet PO SCH ×3 (05:05→17:05)
[2022-03-08] MEDS: cloNIDine 0.1 MG TAB PO SCH ×2 (05:05→11:12)
[2022-03-08] MEDS: Piperacillin/Tazobactam 3.375 GM in Sodium Chloride 0.9% 100 ML IVPB SCH ×3 (05:05→20:53)
[2022-03-08] MEDS: Acetaminophen 325 MG TAB PO SCH ×3 (05:06→17:05)
[2022-03-08 05:55] LABS: Anion Gap 13 mmol/L (10-20); BUN (Urea Nitrogen) 15 mg/dL (7.0-18.7); Calc. Creatinine Clearance 171 mL/min (70-130); Calcium 8.1 mg/dL (7.8-10.44); Carbon Dioxide 25 mmol/L (22-29); Chloride 111 mmol/L (98-107); Estimated GFR 128; Glucose 133 mg/dL (70-105); Phosphorus 2.8 mg/dL (2.3-4.7); Potassium 3.7 mmol/L (3.5-5.1); Sodium 145 mmol/L (136-145)
[2022-03-08 06:34] LABS: Hemoglobin 7.9 g/dL (12.0-16.0); Mean Corpuscular HGB CONC 31.9 g/dL (32.0-36.0); Mean Platelet Volume 9.8 fL (7.4-10.4); Platelet Count 299 thou/uL (130-400); Red Blood Cell (RBC) Count 2.33 mill/uL (4.20-5.40); White Blood Cell (WBC) Count 16.6 thou/uL (4.8-10.8)
[2022-03-08] MEDS: Folic Acid 1 MG TAB PO SCH (07:45)
[2022-03-08] MEDS: Ferrous Sulfate 325 MG TAB PO SCH ×2 (07:45→17:05)
[2022-03-08] MEDS: Enoxaparin Sodium 40 MG/0.4 ML SYRINGE SC SCH (07:45)
[2022-03-08] MEDS: Thiamine 100 MG TAB PO SCH (07:46)
[2022-03-08] MEDS: Ascorbic Acid 500 mg Chewable Tablet PO SCH ×2 (07:46→17:05)
[2022-03-08 07:49] LABS: Band 30 % (5-11); Hypochromia SLIGHT = 6-15 cells (100X) (0-5/hpf); Lymphocytes 7 % (21-51); MDiff Complete? YES; Macrocytosis MODERATE=16-30 cells (100X) (0-5/hpf); Monocytes 4 % (0-10); Myelocyte 2 % (0-0); Neutrophil 57 % (42-75); Platelet Morphology Comment Appears Adequate; Polychromasia SLIGHT = 2-3 cells (100X) (0-2/hpf)
[2022-03-08] MEDS: Acetylcysteine 10% 100 MG/ML 30 ml Vial INH SCH ×2 (13:23→18:43)
[2022-03-08] MEDS ORDERED: D5 1/2 NS w/20 mEq KCL 1,000 ML IV SCH (23:45)
[2022-03-09] MEDS: Acetylcysteine 10% 100 MG/ML 30 ml Vial INH SCH ×4 (01:39→18:34)
[2022-03-09] MEDS ORDERED: Labetalol HCl 100 MG/20 ML VIAL SLOW IVP PRN (02:19)
[2022-03-09] MEDS: Morphine 2 MG/ML VIAL SLOW IVP PRN ×2 (02:59→12:12)
[2022-03-09 05:14] LABS: #Eosinphils 0.1 thou/uL (0.0-0.7); #Lymphocytes 1.3 thou/uL (1.20-3.40); #Monocytes 0.9 thou/uL (0.11-0.59); #Neutrophils 11.8 thou/uL (1.40-6.50); %Basophils 0.2 % (0.0-1.0); %Eosinophils 0.4 % (0.0-10.0); %Lymphocytes 9.1 % (21.0-51.0); %Monocytes 6.3 % (0.0-10.0); Hemoglobin 7.7 g/dL (12.0-16.0); Mean Corpuscular HGB CONC 32.9 g/dL (32.0-36.0); Mean Corpuscular Hemoglobin 34.8 pg (27.0-31.0); Mean Platelet Volume 8.5 fL (7.4-10.4); Platelet Count 507 thou/uL (130-400); RBC Distribution Width 13.9 % (11.5-14.5); Red Blood Cell (RBC) Count 2.21 mill/uL (4.20-5.40)
[2022-03-09 05:47] LABS: Anion Gap 10 mmol/L (10-20); BUN (Urea Nitrogen) 13 mg/dL (7.0-18.7); Calc. Creatinine Clearance 171 mL/min (70-130); Calcium 8.1 mg/dL (7.8-10.44); Carbon Dioxide 26 mmol/L (22-29); Chloride 112 mmol/L (98-107); Estimated GFR 128; Glucose 136 mg/dL (70-105); Potassium 3.6 mmol/L (3.5-5.1); Sodium 144 mmol/L (136-145)
[2022-03-09] MEDS: Piperacillin/Tazobactam 3.375 GM in Sodium Chloride 0.9% 100 ML IVPB SCH ×3 (06:30→20:25)
[2022-03-09] MEDS: cloNIDine 0.1 MG TAB PO SCH ×6 (09:45→23:50)
[2022-03-09] MEDS: Acetaminophen/Codeine 30-300mg Tablet PO SCH ×4 (09:45→23:50)
[2022-03-09] MEDS: Acetaminophen 325 MG TAB PO SCH ×4 (09:45→23:50)
[2022-03-09] MEDS: Oxazepam 10 MG CAP PO SCH ×4 (09:46→20:25)
[2022-03-09] MEDS: Thiamine 100 MG TAB PO SCH (10:02)
[2022-03-09] MEDS: Folic Acid 1 MG TAB PO SCH (10:02)
[2022-03-09] MEDS: Ferrous Sulfate 325 MG TAB PO SCH ×2 (10:02→17:32)
[2022-03-09] MEDS: Ascorbic Acid 500 mg Chewable Tablet PO SCH ×2 (10:02→17:32)
[2022-03-09] MEDS: Saccharomyces boulardii 250 MG CAP PO SCH (10:02)
[2022-03-09] MEDS: Enoxaparin Sodium 40 MG/0.4 ML SYRINGE SC SCH (10:04)
[2022-03-09] MEDS: Polyethylene Glycol 3350 17 GM Packet PER TUBE SCH (10:04)
[2022-03-09] MEDS ORDERED: Potassium Phosphate 30 MMOL in Sodium Chloride 0.9% 250 ML 250 ML IVPB SCH (10:45)
[2022-03-09] MEDS ORDERED: Morphine 2 MG/ML VIAL SLOW IVP SCH (12:45)
[2022-03-09] MEDS: Lidocaine 2% 6 ML SYR TOP SCH (15:35)
[2022-03-09] MEDS: D5 1/2 NS w/20 mEq KCL 1,000 ML IV SCH (17:34)
[2022-03-09] MEDS ORDERED: D5 1/2 NS w/30 mEq KCL 1,000 ML IV SCH (20:00)
[2022-03-10] MEDS: Acetylcysteine 10% 100 MG/ML 30 ml Vial INH SCH ×4 (00:32→18:28)
[2022-03-10] MEDS: Oxazepam 10 MG CAP PO SCH ×4 (02:23→20:23)
[2022-03-10 05:07] LABS: #Eosinphils 0.1 thou/uL (0.0-0.7); #Lymphocytes 1.8 thou/uL (1.20-3.40); #Monocytes 0.8 thou/uL (0.11-0.59); #Neutrophils 9.3 thou/uL (1.40-6.50); %Basophils 0.2 % (0.0-1.0); %Lymphocytes 14.9 % (21.0-51.0); %Monocytes 6.9 % (0.0-10.0); Hemoglobin 7.3 g/dL (12.0-16.0); Mean Corpuscular HGB CONC 32.4 g/dL (32.0-36.0); Mean Corpuscular Hemoglobin 34.7 pg (27.0-31.0); Mean Platelet Volume 8.2 fL (7.4-10.4); Platelet Count 550 thou/uL (130-400); RBC Distribution Width 13.7 % (11.5-14.5); Red Blood Cell (RBC) Count 2.09 mill/uL (4.20-5.40); White Blood Cell (WBC) Count 12.1 thou/uL (4.8-10.8)
[2022-03-10] MEDS: Piperacillin/Tazobactam 3.375 GM in Sodium Chloride 0.9% 100 ML IVPB SCH ×3 (05:34→20:22)
[2022-03-10] MEDS: cloNIDine 0.1 MG TAB PO SCH ×4 (05:34→23:31)
[2022-03-10] MEDS: Acetaminophen/Codeine 30-300mg Tablet PO SCH ×4 (05:34→23:32)
[2022-03-10] MEDS: Acetaminophen 325 MG TAB PO SCH ×4 (05:35→23:32)
[2022-03-10] MEDS: D5 1/2 NS w/20 mEq KCL 1,000 ML IV SCH ×2 (07:42→19:19)
[2022-03-10] MEDS: Ascorbic Acid 500 mg Chewable Tablet PO SCH ×2 (08:19→17:16)
[2022-03-10] MEDS: Ferrous Sulfate 325 MG TAB PO SCH ×2 (08:19→17:16)
[2022-03-10] MEDS: Thiamine 100 MG TAB PO SCH (08:55)
[2022-03-10] MEDS: Folic Acid 1 MG TAB PO SCH (08:55)
[2022-03-10] MEDS: Polyethylene Glycol 3350 17 GM Packet PER TUBE SCH (08:55)
[2022-03-10] MEDS: Enoxaparin Sodium 40 MG/0.4 ML SYRINGE SC SCH (08:55)
[2022-03-10] MEDS: Saccharomyces boulardii 250 MG CAP PO SCH (08:55)
[2022-03-11] MEDS: Acetylcysteine 10% 100 MG/ML 30 ml Vial INH SCH ×3 (01:15→12:32)
[2022-03-11] MEDS: Oxazepam 10 MG CAP PO SCH ×4 (03:49→21:38)
[2022-03-11] MEDS: Acetaminophen/Codeine 30-300mg Tablet PO SCH ×4 (05:44→23:35)
[2022-03-11] MEDS: Piperacillin/Tazobactam 3.375 GM in Sodium Chloride 0.9% 100 ML IVPB SCH ×3 (05:45→21:37)
[2022-03-11] MEDS: Acetaminophen 325 MG TAB PO SCH ×4 (05:45→23:35)
[2022-03-11] MEDS: cloNIDine 0.1 MG TAB PO SCH ×5 (05:46→23:36)
[2022-03-11] MEDS: Ascorbic Acid 500 mg Chewable Tablet PO SCH ×2 (08:11→17:13)
[2022-03-11] MEDS: Saccharomyces boulardii 250 MG CAP PO SCH (08:12)
[2022-03-11] MEDS: Thiamine 100 MG TAB PO SCH (08:12)
[2022-03-11] MEDS: Folic Acid 1 MG TAB PO SCH (08:12)
[2022-03-11] MEDS: D5 1/2 NS w/20 mEq KCL 1,000 ML IV SCH ×2 (08:13→11:40)
[2022-03-11] MEDS: Enoxaparin Sodium 40 MG/0.4 ML SYRINGE SC SCH (08:13)
[2022-03-11] MEDS: Polyethylene Glycol 3350 17 GM Packet PER TUBE SCH (08:13)
[2022-03-11] MEDS: Ferrous Sulfate 325 MG TAB PO SCH ×2 (08:13→17:12)
[2022-03-12 04:19] LABS: #Eosinphils 0.2 thou/uL (0.0-0.7); #Lymphocytes 2.1 thou/uL (1.20-3.40); #Monocytes 0.8 thou/uL (0.11-0.59); #Neutrophils 7.6 thou/uL (1.40-6.50); %Basophils 0.3 % (0.0-1.0); %Eosinophils 1.5 % (0.0-10.0); %Lymphocytes 19.3 % (21.0-51.0); %Monocytes 7.5 % (0.0-10.0); %Neutrophils 71.3 % (42.0-75.0); Hemoglobin 7.5 g/dL (12.0-16.0); Mean Corpuscular Hemoglobin 34.2 pg (27.0-31.0); Mean Platelet Volume 7.5 fL (7.4-10.4); Platelet Count 624 thou/uL (130-400); RBC Distribution Width 13.7 % (11.5-14.5); White Blood Cell (WBC) Count 10.6 thou/uL (4.8-10.8)
[2022-03-12] MEDS: Oxazepam 10 MG CAP PO SCH ×2 (04:33→08:38)
[2022-03-12] MEDS: Piperacillin/Tazobactam 3.375 GM in Sodium Chloride 0.9% 100 ML IVPB SCH ×3 (04:33→21:10)
[2022-03-12] MEDS: Acetaminophen/Codeine 30-300mg Tablet PO SCH ×4 (04:35→23:36)
[2022-03-12 04:44] LABS: Anion Gap 11 mmol/L (10-20); BUN (Urea Nitrogen) 6 mg/dL (7.0-18.7); Calc. Creatinine Clearance 173 mL/min (70-130); Calcium 8.4 mg/dL (7.8-10.44); Carbon Dioxide 27 mmol/L (22-29); Chloride 107 mmol/L (98-107); Estimated GFR 129; Glucose 97 mg/dL (70-105); Magnesium 1.9 mg/dL (1.6-2.6); Phosphorus 3.1 mg/dL (2.3-4.7); Potassium 3.7 mmol/L (3.5-5.1); Sodium 141 mmol/L (136-145)
[2022-03-12] MEDS: Acetaminophen 325 MG TAB PO SCH ×4 (06:38→23:37)
[2022-03-12] MEDS: cloNIDine 0.1 MG TAB PO SCH ×4 (06:38→23:17)
[2022-03-12] MEDS: D5 1/2 NS w/20 mEq KCL 1,000 ML IV SCH (08:37)
[2022-03-12] MEDS: Enoxaparin Sodium 40 MG/0.4 ML SYRINGE SC SCH (08:37)
[2022-03-12] MEDS: Ascorbic Acid 500 mg Chewable Tablet PO SCH ×2 (10:01→18:11)
[2022-03-12] MEDS: Ferrous Sulfate 325 MG TAB PO SCH ×2 (10:01→18:11)
[2022-03-12] MEDS: Polyethylene Glycol 3350 17 GM Packet PER TUBE SCH (10:04)
[2022-03-12] MEDS ORDERED: fentaNYL Citrate/PF 100 MCG/2 ML SYRINGE ONE ×2 (10:07→11:08)
[2022-03-12] MEDS ORDERED: Lidocaine 1% PF 5 ML VIAL ONE (10:45)
[2022-03-12] MEDS ORDERED: Ketorolac Tromethamine 30 MG/ML VIAL ONE (10:45)
[2022-03-12] MEDS ORDERED: PROPOFOL 200 MG/20 ML VIAL ONE (10:45)
[2022-03-12] MEDS ORDERED: Ondansetron PF 4 MG/2 ML Vial ONE (10:45)
[2022-03-12] MEDS ORDERED: Dexamethasone 20 MG/5 ML VIAL ONE (10:45)
[2022-03-12] MEDS ORDERED: Piperacillin/Tazobactam 3.375 GM VIAL ONE (11:53)
[2022-03-12] MEDS ORDERED: HYDROmorphone 2 MG/ML VIAL SLOW IVP PRN (12:34)
[2022-03-12] MEDS ORDERED: Ondansetron HCl/PF 4 MG/2 ML Vial IVP PRN (12:34)
[2022-03-12] MEDS ORDERED: Promethazine HCl 25 MG/ML VIAL IM PRN (12:34)
[2022-03-12] MEDS ORDERED: Meperidine HCl/PF 25 MG/ML VIAL SLOW IVP PRN (12:34)
[2022-03-12] MEDS ORDERED: Promethazine HCl 25 MG/ML VIAL IVPB PRN (12:34)
[2022-03-12] MEDS ORDERED: Fentanyl 100 MCG/2 ML VIAL ONE (12:35)
[2022-03-12] MEDS: Lidocaine 2% 6 ML SYR TOP SCH (12:45)
[2022-03-12] MEDS: Folic Acid 1 MG TAB PO SCH (14:06)
[2022-03-12] MEDS: Saccharomyces boulardii 250 MG CAP PO SCH (14:06)
[2022-03-12] MEDS: Thiamine 100 MG TAB PO SCH (14:06)
[2022-03-13] MEDS: Acetaminophen/Codeine 30-300mg Tablet PO PRN (02:01)
[2022-03-13] MEDS: D5 1/2 NS w/20 mEq KCL 1,000 ML IV SCH (04:23)
[2022-03-13] MEDS: Piperacillin/Tazobactam 3.375 GM in Sodium Chloride 0.9% 100 ML IVPB SCH ×3 (04:24→20:58)
[2022-03-13 04:51] LABS: #Eosinphils 0.1 thou/uL (0.0-0.7); #Lymphocytes 1.9 thou/uL (1.20-3.40); #Monocytes 0.8 thou/uL (0.11-0.59); #Neutrophils 7.7 thou/uL (1.40-6.50); %Basophils 0.1 % (0.0-1.0); %Eosinophils 1.2 % (0.0-10.0); %Monocytes 7.2 % (0.0-10.0); %Neutrophils 73.4 % (42.0-75.0); Hemoglobin 7.8 g/dL (12.0-16.0); Mean Corpuscular HGB CONC 32.3 g/dL (32.0-36.0); Mean Corpuscular Hemoglobin 33.9 pg (27.0-31.0); Mean Platelet Volume 7.3 fL (7.4-10.4); Platelet Count 728 thou/uL (130-400); RBC Distribution Width 13.3 % (11.5-14.5); Red Blood Cell (RBC) Count 2.29 mill/uL (4.20-5.40); White Blood Cell (WBC) Count 10.4 thou/uL (4.8-10.8)
[2022-03-13 05:12] LABS: Anion Gap 13 mmol/L (10-20); BUN (Urea Nitrogen) 6 mg/dL (7.0-18.7); Calc. Creatinine Clearance 151 mL/min (70-130); Calcium 8.3 mg/dL (7.8-10.44); Carbon Dioxide 24 mmol/L (22-29); Chloride 106 mmol/L (98-107); Estimated GFR 127; Glucose 106 mg/dL (70-105); Magnesium 1.9 mg/dL (1.6-2.6); Phosphorus 2.7 mg/dL (2.3-4.7); Potassium 3.5 mmol/L (3.5-5.1); Sodium 139 mmol/L (136-145)
[2022-03-13] MEDS: Acetaminophen 325 MG TAB PO SCH ×4 (06:02→23:34)
[2022-03-13] MEDS: Acetaminophen/Codeine 30-300mg Tablet PO SCH ×4 (06:03→23:33)
[2022-03-13] MEDS: cloNIDine 0.1 MG TAB PO SCH ×3 (06:18→20:58)
[2022-03-13] MEDS: Enoxaparin Sodium 40 MG/0.4 ML SYRINGE SC SCH (08:04)
[2022-03-13] MEDS: Ascorbic Acid 500 mg Chewable Tablet PO SCH ×2 (08:05→17:51)
[2022-03-13] MEDS: Polyethylene Glycol 3350 17 GM Packet PER TUBE SCH (08:05)
[2022-03-13] MEDS: Thiamine 100 MG TAB PO SCH (08:05)
[2022-03-13] MEDS: Folic Acid 1 MG TAB PO SCH (08:05)
[2022-03-13] MEDS: Saccharomyces boulardii 250 MG CAP PO SCH (08:05)
[2022-03-13] MEDS: Ferrous Sulfate 325 MG TAB PO SCH ×2 (08:05→17:51)
[2022-03-13] MEDS: Aspirin 81 mg Enteric Coated Tablet PO SCH (08:22)
[2022-03-13] MEDS ORDERED: Potassium Phosphate 30 MMOL in Sodium Chloride 0.9% 250 ML 250 ML IVPB SCH (15:00)
[2022-03-14 04:55] LABS: #Eosinphils 0.2 thou/uL (0.0-0.7); #Monocytes 0.8 thou/uL (0.11-0.59); #Neutrophils 7.3 thou/uL (1.40-6.50); %Basophils 0.1 % (0.0-1.0); %Eosinophils 1.5 % (0.0-10.0); %Lymphocytes 19.9 % (21.0-51.0); %Monocytes 7.5 % (0.0-10.0); Hemoglobin 7.6 g/dL (12.0-16.0); Mean Corpuscular HGB CONC 32.3 g/dL (32.0-36.0); Mean Corpuscular Hemoglobin 33.6 pg (27.0-31.0); Mean Platelet Volume 7.3 fL (7.4-10.4); Platelet Count 748 thou/uL (130-400); RBC Distribution Width 13.2 % (11.5-14.5); Red Blood Cell (RBC) Count 2.26 mill/uL (4.20-5.40); White Blood Cell (WBC) Count 10.2 thou/uL (4.8-10.8)
[2022-03-14 05:14] LABS: Anion Gap 12 mmol/L (10-20); BUN (Urea Nitrogen) 6 mg/dL (7.0-18.7); Calc. Creatinine Clearance 149 mL/min (70-130); Calcium 8.4 mg/dL (7.8-10.44); Carbon Dioxide 25 mmol/L (22-29); Chloride 105 mmol/L (98-107); Estimated GFR 129; Glucose 88 mg/dL (70-105); Magnesium 1.8 mg/dL (1.6-2.6); Phosphorus 3.4 mg/dL (2.3-4.7); Potassium 3.5 mmol/L (3.5-5.1); Sodium 138 mmol/L (136-145)
[2022-03-14] MEDS: Piperacillin/Tazobactam 3.375 GM in Sodium Chloride 0.9% 100 ML IVPB SCH ×3 (05:27→20:23)
[2022-03-14] MEDS: Acetaminophen 325 MG TAB PO SCH ×4 (05:28→23:57)
[2022-03-14] MEDS: cloNIDine 0.1 MG TAB PO SCH ×3 (05:28→20:23)
[2022-03-14] MEDS: Acetaminophen/Codeine 30-300mg Tablet PO SCH ×4 (05:29→23:57)
[2022-03-14] MEDS: Enoxaparin Sodium 40 MG/0.4 ML SYRINGE SC SCH (07:58)
[2022-03-14] MEDS: Saccharomyces boulardii 250 MG CAP PO SCH (07:59)
[2022-03-14] MEDS: Ascorbic Acid 500 mg Chewable Tablet PO SCH ×2 (07:59→18:21)
[2022-03-14] MEDS: Polyethylene Glycol 3350 17 GM Packet PER TUBE SCH (07:59)
[2022-03-14] MEDS: Thiamine 100 MG TAB PO SCH (07:59)
[2022-03-14] MEDS: Aspirin 81 mg Enteric Coated Tablet PO SCH (07:59)
[2022-03-14] MEDS: Folic Acid 1 MG TAB PO SCH (07:59)
[2022-03-14] MEDS: Ferrous Sulfate 325 MG TAB PO SCH ×2 (07:59→18:21)
[2022-03-14] MEDS ORDERED: Morphine 4 MG/ML VIAL SLOW IVP PRN (09:01)
[2022-03-14] MEDS ORDERED: Morphine 4 MG/ML VIAL ONE (09:08)
[2022-03-14] MEDS ORDERED: Morphine 4 MG/ML VIAL SLOW IVP SCH (09:30)
[2022-03-15] MEDS: Piperacillin/Tazobactam 3.375 GM in Sodium Chloride 0.9% 100 ML IVPB SCH ×2 (05:02→12:31)
[2022-03-15] MEDS: Acetaminophen 325 MG TAB PO SCH ×4 (05:04→23:33)
[2022-03-15] MEDS: cloNIDine 0.1 MG TAB PO SCH ×2 (05:04→21:16)
[2022-03-15] MEDS: Acetaminophen/Codeine 30-300mg Tablet PO SCH ×4 (05:05→23:31)
[2022-03-15 06:06] LABS: #Eosinphils 0.1 thou/uL (0.0-0.7); #Lymphocytes 2.5 thou/uL (1.20-3.40); #Monocytes 0.7 thou/uL (0.11-0.59); #Neutrophils 7.1 thou/uL (1.40-6.50); %Basophils 0.1 % (0.0-1.0); %Eosinophils 0.9 % (0.0-10.0); %Monocytes 6.9 % (0.0-10.0); %Neutrophils 68.1 % (42.0-75.0); Hemoglobin 8.9 g/dL (12.0-16.0); Mean Corpuscular Hemoglobin 32.8 pg (27.0-31.0); Mean Platelet Volume 7.2 fL (7.4-10.4); Platelet Count 820 thou/uL (130-400); RBC Distribution Width 13.4 % (11.5-14.5); Red Blood Cell (RBC) Count 2.71 mill/uL (4.20-5.40); White Blood Cell (WBC) Count 10.4 thou/uL (4.8-10.8)
[2022-03-15 06:37] LABS: Anion Gap 16 mmol/L (10-20); BUN (Urea Nitrogen) 6 mg/dL (7.0-18.7); Calc. Creatinine Clearance 147 mL/min (70-130); Calcium 8.8 mg/dL (7.8-10.44); Carbon Dioxide 21 mmol/L (22-29); Chloride 105 mmol/L (98-107); Estimated GFR 128; Glucose 101 mg/dL (70-105); Magnesium 1.8 mg/dL (1.6-2.6); Phosphorus 3.2 mg/dL (2.3-4.7); Potassium 3.6 mmol/L (3.5-5.1); Sodium 138 mmol/L (136-145)
[2022-03-15] MEDS: Ferrous Sulfate 325 MG TAB PO SCH ×2 (09:47→18:01)
[2022-03-15] MEDS: Folic Acid 1 MG TAB PO SCH (09:47)
[2022-03-15] MEDS: Ascorbic Acid 500 mg Chewable Tablet PO SCH ×2 (09:47→18:01)
[2022-03-15] MEDS: Saccharomyces boulardii 250 MG CAP PO SCH (09:47)
[2022-03-15] MEDS: Enoxaparin Sodium 40 MG/0.4 ML SYRINGE SC SCH (09:48)
[2022-03-15] MEDS: Thiamine 100 MG TAB PO SCH (09:48)
[2022-03-15] MEDS: Aspirin 81 mg Enteric Coated Tablet PO SCH (09:48)
[2022-03-15] MEDS: Polyethylene Glycol 3350 17 GM Packet PER TUBE SCH (09:59)
[2022-03-15] MEDS: Nystatin 500,000 UNITS/5 ML UDCUP SSW SCH ×3 (13:00→21:17)
[2022-03-15] MEDS: Lidocaine 2% 6 ML SYR TOP SCH (13:00)
[2022-03-15] MEDS: Amoxicillin/Potassium Clav 875 MG TAB PO SCH (21:16)
[2022-03-16] MEDS: Acetaminophen/Codeine 30-300mg Tablet PO SCH ×3 (05:25→17:46)
[2022-03-16] MEDS: Acetaminophen 325 MG TAB PO SCH ×3 (05:26→17:45)
[2022-03-16] MEDS: Enoxaparin Sodium 40 MG/0.4 ML SYRINGE SC SCH (08:06)
[2022-03-16] MEDS: Nystatin 500,000 UNITS/5 ML UDCUP SSW SCH ×4 (08:06→21:21)
[2022-03-16] MEDS: Saccharomyces boulardii 250 MG CAP PO SCH (08:07)
[2022-03-16] MEDS: Ascorbic Acid 500 mg Chewable Tablet PO SCH ×2 (08:07→17:45)
[2022-03-16] MEDS: cloNIDine 0.1 MG TAB PO SCH ×2 (08:08→21:21)
[2022-03-16] MEDS: Ferrous Sulfate 325 MG TAB PO SCH ×2 (08:10→17:46)
[2022-03-16] MEDS: Folic Acid 1 MG TAB PO SCH (08:10)
[2022-03-16] MEDS: Aspirin 81 mg Enteric Coated Tablet PO SCH (08:11)
[2022-03-16] MEDS: Polyethylene Glycol 3350 17 GM Packet PER TUBE SCH (08:11)
[2022-03-16] MEDS: Amoxicillin/Potassium Clav 875 MG TAB PO SCH ×2 (08:11→21:21)
[2022-03-16] MEDS: Thiamine 100 MG TAB PO SCH (08:11)
[2022-03-16] MEDS ORDERED: Morphine 4 MG/ML VIAL ONE (09:19)
[2022-03-17] MEDS ORDERED: Morphine 4 MG/ML VIAL SLOW IVP PRN (00:04)
[2022-03-17] MEDS: Acetaminophen 325 MG TAB PO SCH ×5 (00:40→23:20)
[2022-03-17] MEDS: Acetaminophen/Codeine 30-300mg Tablet PO SCH ×5 (00:41→23:21)
[2022-03-17] MEDS: Ascorbic Acid 500 mg Chewable Tablet PO SCH ×2 (10:07→17:01)
[2022-03-17] MEDS: Ferrous Sulfate 325 MG TAB PO SCH ×2 (10:08→17:02)
[2022-03-17] MEDS: Amoxicillin/Potassium Clav 875 MG TAB PO SCH ×2 (10:08→21:42)
[2022-03-17] MEDS: Aspirin 81 mg Enteric Coated Tablet PO SCH (10:09)
[2022-03-17] MEDS: Enoxaparin Sodium 40 MG/0.4 ML SYRINGE SC SCH (10:10)
[2022-03-17] MEDS: cloNIDine 0.1 MG TAB PO SCH ×2 (10:10→21:41)
[2022-03-17] MEDS: Folic Acid 1 MG TAB PO SCH (10:11)
[2022-03-17] MEDS: Polyethylene Glycol 3350 17 GM Packet PER TUBE SCH (10:12)
[2022-03-17] MEDS: Nystatin 500,000 UNITS/5 ML UDCUP SSW SCH ×5 (10:12→21:42)
[2022-03-17] MEDS: Saccharomyces boulardii 250 MG CAP PO SCH (10:13)
[2022-03-17] MEDS: Thiamine 100 MG TAB PO SCH (10:13)
[2022-03-17] MEDS: Acetaminophen/Codeine 30-300mg Tablet PO PRN (10:22)
[2022-03-18] MEDS: Acetaminophen/Codeine 30-300mg Tablet PO SCH ×4 (06:36→20:54)
[2022-03-18] MEDS: Acetaminophen 325 MG TAB PO SCH ×3 (06:36→17:48)
[2022-03-18] MEDS: cloNIDine 0.1 MG TAB PO SCH ×2 (08:41→20:50)
[2022-03-18] MEDS: Aspirin 81 mg Enteric Coated Tablet PO SCH (08:41)
[2022-03-18] MEDS: Ferrous Sulfate 325 MG TAB PO SCH ×2 (08:41→17:47)
[2022-03-18] MEDS: Thiamine 100 MG TAB PO SCH (08:41)
[2022-03-18] MEDS: Folic Acid 1 MG TAB PO SCH (08:42)
[2022-03-18] MEDS: Polyethylene Glycol 3350 17 GM Packet PER TUBE SCH (08:42)
[2022-03-18] MEDS: Amoxicillin/Potassium Clav 875 MG TAB PO SCH ×2 (08:42→20:50)
[2022-03-18] MEDS: Saccharomyces boulardii 250 MG CAP PO SCH (08:42)
[2022-03-18] MEDS: Enoxaparin Sodium 40 MG/0.4 ML SYRINGE SC SCH (08:42)
[2022-03-18] MEDS: Ascorbic Acid 500 mg Chewable Tablet PO SCH ×2 (08:42→17:47)
[2022-03-18] MEDS: Nystatin 500,000 UNITS/5 ML UDCUP SSW SCH ×4 (09:31→20:50)
[2022-03-19] MEDS: Acetaminophen 325 MG TAB PO SCH ×4 (00:50→17:45)
[2022-03-19] MEDS: Acetaminophen/Codeine 30-300mg Tablet PO SCH ×3 (05:29→17:45)
[2022-03-19 05:53] LABS: #Eosinphils 0.2 thou/uL (0.0-0.7); #Lymphocytes 2.5 thou/uL (1.20-3.40); #Monocytes 0.7 thou/uL (0.11-0.59); #Neutrophils 6.9 thou/uL (1.40-6.50); %Basophils 0.2 % (0.0-1.0); %Eosinophils 1.7 % (0.0-10.0); %Lymphocytes 24.2 % (21.0-51.0); %Monocytes 7.1 % (0.0-10.0); %Neutrophils 66.8 % (42.0-75.0); Hemoglobin 10.1 g/dL (12.0-16.0); Mean Corpuscular HGB CONC 31.5 g/dL (32.0-36.0); Mean Corpuscular Hemoglobin 32.2 pg (27.0-31.0); Mean Platelet Volume 7.2 fL (7.4-10.4); Platelet Count 710 thou/uL (130-400); RBC Distribution Width 13.7 % (11.5-14.5); Red Blood Cell (RBC) Count 3.15 mill/uL (4.20-5.40); White Blood Cell (WBC) Count 10.4 thou/uL (4.8-10.8)
[2022-03-19 06:13] LABS: Anion Gap 15 mmol/L (10-20); BUN (Urea Nitrogen) 9 mg/dL (7.0-18.7); Calc. Creatinine Clearance 140 mL/min (70-130); Calcium 9.2 mg/dL (7.8-10.44); Carbon Dioxide 23 mmol/L (22-29); Chloride 104 mmol/L (98-107); Estimated GFR 125; Glucose 114 mg/dL (70-105); Magnesium 1.6 mg/dL (1.6-2.6); Phosphorus 4.1 mg/dL (2.3-4.7); Potassium 4.1 mmol/L (3.5-5.1); Sodium 138 mmol/L (136-145)
[2022-03-19] MEDS ORDERED: Magnesium 2 GM/50 ML(in water) 2 GM in Premix Bag 1 BAG IVPB SCH (08:45)
[2022-03-19] MEDS: Enoxaparin Sodium 40 MG/0.4 ML SYRINGE SC SCH (08:48)
[2022-03-19] MEDS: Nystatin 500,000 UNITS/5 ML UDCUP SSW SCH ×4 (08:48→21:15)
[2022-03-19] MEDS: Ferrous Sulfate 325 MG TAB PO SCH ×2 (08:48→17:45)
[2022-03-19] MEDS: Saccharomyces boulardii 250 MG CAP PO SCH (08:48)
[2022-03-19] MEDS: Amoxicillin/Potassium Clav 875 MG TAB PO SCH ×2 (08:48→21:15)
[2022-03-19] MEDS: Ascorbic Acid 500 mg Chewable Tablet PO SCH ×2 (08:48→17:45)
[2022-03-19] MEDS: Folic Acid 1 MG TAB PO SCH (08:48)
[2022-03-19] MEDS: Thiamine 100 MG TAB PO SCH (08:49)
[2022-03-19] MEDS: Aspirin 81 mg Enteric Coated Tablet PO SCH (08:49)
[2022-03-19] MEDS: cloNIDine 0.1 MG TAB PO SCH ×2 (08:50→21:15)
[2022-03-19] MEDS: Polyethylene Glycol 3350 17 GM Packet PER TUBE SCH (08:51)
[2022-03-19] MEDS: Multivit, Therapeutic 1 TAB PO SCH (08:58)
[2022-03-19] MEDS ORDERED: Acetaminophen/Codeine 30-300mg Tablet PO PRN (10:45)
[2022-03-19] MEDS: Lidocaine 2% 6 ML SYR TOP SCH (11:24)
[2022-03-19 14:37] VITALS: BMI 16.7
[2022-03-20] MEDS: Acetaminophen 325 MG TAB PO SCH ×3 (00:35→12:36)
[2022-03-20] MEDS: Acetaminophen/Codeine 30-300mg Tablet PO SCH ×3 (00:35→12:36)
[2022-03-20] MEDS: Ascorbic Acid 500 mg Chewable Tablet PO SCH (08:47)
[2022-03-20] MEDS: Nystatin 500,000 UNITS/5 ML UDCUP SSW SCH ×2 (08:47→12:36)
[2022-03-20] MEDS: Amoxicillin/Potassium Clav 875 MG TAB PO SCH (08:47)
[2022-03-20] MEDS: Thiamine 100 MG TAB PO SCH (08:47)
[2022-03-20] MEDS: Folic Acid 1 MG TAB PO SCH (08:47)
[2022-03-20] MEDS: Enoxaparin Sodium 40 MG/0.4 ML SYRINGE SC SCH (08:47)
[2022-03-20] MEDS: Multivit, Therapeutic 1 TAB PO SCH (08:48)
[2022-03-20] MEDS: Ferrous Sulfate 325 MG TAB PO SCH (08:48)
[2022-03-20] MEDS: Saccharomyces boulardii 250 MG CAP PO SCH (08:48)
[2022-03-20] MEDS: Aspirin 81 mg Enteric Coated Tablet PO SCH (08:48)
[2022-03-20] MEDS: Polyethylene Glycol 3350 17 GM Packet PER TUBE SCH (09:57)
[2022-03-20] MEDS: cloNIDine 0.1 MG TAB PO SCH (12:35)
[2022-03-20 15:52] VITALS: BP 112/73; TEMP 98.6
== END 2022-03-20 16:38 | DRG 957 ==
LOC: EDBD 04:00 → ERS 04:00 → CCU 04:53 → IMCU/EMU 03-10 11:14 → SURG A 03-14 22:39
PROVIDERS: ADMIT Student in an Organized Health Care Education/Training Program; ATTEND Surgery
PROC: 0BH17EZ Insertion of Endotracheal Airway into Trachea, Via Natural or Artificial Opening (ICD-10-PCS; principal; 2022-02-26)
PROC: 5A1955Z Respiratory Ventilation, Greater than 96 Consecutive Hours (ICD-10-PCS; 2022-02-26)
PROC: 0D9670Z Drainage of Stomach with Drainage Device, Via Natural or Artificial Opening (ICD-10-PCS; 2022-02-26)
PROC: 02H633Z Insertion of Infusion Device into Right Atrium, Percutaneous Approach (ICD-10-PCS; 2022-02-26)
PROC: 3E043XZ Introduction of Vasopressor into Central Vein, Percutaneous Approach (ICD-10-PCS; 2022-02-28)
PROC: 0B968ZZ Drainage of Right Lower Lobe Bronchus, Via Natural or Artificial Opening Endoscopic (ICD-10-PCS; 2022-02-28)
PROC: 0DB80ZZ Excision of Small Intestine, Open Approach (ICD-10-PCS; 2022-02-28)
PROC: 0DQV0ZZ Repair Mesentery, Open Approach (ICD-10-PCS; 2022-02-28)
PROC: 0DBN0ZZ Excision of Sigmoid Colon, Open Approach (ICD-10-PCS; 2022-02-28)
PROC: 0W9F0ZZ Drainage of Abdominal Wall, Open Approach (ICD-10-PCS; 2022-02-28)
PROC: 0D1A0ZB Bypass Jejunum to Ileum, Open Approach (ICD-10-PCS; 2022-02-28)
PROC: 04HY32Z Insertion of Monitoring Device into Lower Artery, Percutaneous Approach (ICD-10-PCS; 2022-02-28)
PROC: 0DQL0ZZ Repair Transverse Colon, Open Approach (ICD-10-PCS; 2022-02-28)
PROC: 30233N1 Transfusion of Nonautologous Red Blood Cells into Peripheral Vein, Percutaneous Approach (ICD-10-PCS; 2022-03-01)
PROC: 0W9F0ZZ Drainage of Abdominal Wall, Open Approach (ICD-10-PCS; 2022-03-02)
PROC: 0D1M0Z4 Bypass Descending Colon to Cutaneous, Open Approach (ICD-10-PCS; 2022-03-02)
PROC: 0DHA0UZ Insertion of Feeding Device into Jejunum, Open Approach (ICD-10-PCS; 2022-03-02)
PROC: 3E0H76Z Introduction of Nutritional Substance into Lower GI, Via Natural or Artificial Opening (ICD-10-PCS; 2022-03-02)
PROC: 0JB80ZZ Excision of Abdomen Subcutaneous Tissue and Fascia, Open Approach (ICD-10-PCS; 2022-03-12)
DX: S36.438A Laceration of other part of small intestine, initial encounter (principal); S06.6X9A Traumatic subarachnoid hemorrhage with loss of consciousness of unspecified duration, initial encounter; J96.01 Acute respiratory failure with hypoxia; S36.031A Moderate laceration of spleen, initial encounter; J69.0 Pneumonitis due to inhalation of food and vomit; K65.8 Other peritonitis; S06.5X9A Traumatic subdural hemorrhage with loss of consciousness of unspecified duration, initial encounter; R65.21 Severe sepsis with septic shock; A41.9 Sepsis, unspecified organism; R40.2312 Coma scale, best motor response, none, at arrival to emergency department; R40.2112 Coma scale, eyes open, never, at arrival to emergency department; R40.2212 Coma scale, best verbal response, none, at arrival to emergency department; S12.600A Unspecified displaced fracture of seventh cervical vertebra, initial encounter for closed fracture; S22.019A Unspecified fracture of first thoracic vertebra, initial encounter for closed fracture; S22.32XA Fracture of one rib, left side, initial encounter for closed fracture; S22.20XA Unspecified fracture of sternum, initial encounter for closed fracture; S27.0XXA Traumatic pneumothorax, initial encounter; S32.049A Unspecified fracture of fourth lumbar vertebra, initial encounter for closed fracture; T79.7XXA Traumatic subcutaneous emphysema, initial encounter; D62 Acute posthemorrhagic anemia; S36.893A Laceration of other intra-abdominal organs, initial encounter; S36.533A Laceration of sigmoid colon, initial encounter; G93.1 Anoxic brain damage, not elsewhere classified; F10.239 Alcohol dependence with withdrawal, unspecified; N17.9 Acute kidney failure, unspecified; E87.0 Hyperosmolality and hypernatremia; J98.11 Atelectasis; I96 Gangrene, not elsewhere classified; T81.41XA Infection following a procedure, superficial incisional surgical site, initial encounter; Z20.822 Contact with and (suspected) exposure to COVID-19; Y90.8 Blood alcohol level of 240 mg/100 ml or more; F10.229 Alcohol dependence with intoxication, unspecified; K43.9 Ventral hernia without obstruction or gangrene; T79.6XXA Traumatic ischemia of muscle, initial encounter; G93.89 Other specified disorders of brain; E87.6 Hypokalemia; E83.42 Hypomagnesemia; E83.39 Other disorders of phosphorus metabolism; E83.51 Hypocalcemia; D75.838 Other thrombocytosis; Y83.8 Other surgical procedures as the cause of abnormal reaction of the patient, or of later complication, without mention of misadventure at the time of the procedure; V49.40XA Driver injured in collision with unspecified motor vehicles in traffic accident, initial encounter; Y92.413 State road as the place of occurrence of the external cause
CPT/HCPCS: 31500; 31624; 36415; 36416; 36430; 36600; 70450; 71045; 71260; 72125; 74018; 74177; 80048; 80053; 80307; 81003; 81015; 81025; 82533; 82550; 82570; 82805; 83605; 83690; 83735; 83880; 84100; 84134; 84146; 85025; 85379; 85384; 85610; 85730; 86850; 86900; 86901; 87070; 87086; 87205; 88307; 93306; 93970; 94002; 94003; 94640; 94660; 94667; 94668; 96365; 96375; 96376; 97139; 99292; A4649; C1713; C1776; C9113; G0390; J1100; J1200; J1630; J1650; J1815; J1885; J1940; J2060; J2250; J2270; J2405; J2543; J2704; J3010; J3411; J3475; J3480; J3486; J3490; J7030; J7042; J7050; J7070; J7120; J7608; J7620; P9016; P9045; Q9967; S0028; U0002; U0003; U0005

== ENCOUNTER 2022-04-07 23:06 | Emergency (ER) | payer OTHER ==
[2022-04-07] MEDS ORDERED: HYDROcodone/Acetaminophen 5/325 mg Tablet ONE (23:52)
== END 2022-04-08 00:40 | disposition home or self-care (01) ==
LOC: ERS 23:06
DX: K94.03 Colostomy malfunction (principal)
CPT/HCPCS: 99282

== ENCOUNTER 2022-05-14 13:13 | Emergency (ER) | payer OTHER ==
[~2022-05-14 13:13] MED LIST: Iopamidol-370 76% 500 ML 1 ML ONE
[2022-05-14 13:56] LABS: Bacteria/HPF None Seen HPF (None Seen); Bilirubin Negative (Negative); Blood, Urine Negative (Negative); Clarity Clear (Clear); Glucose, Urine (Dipstick) Normal (Negative); Ketone, Urine Negative (Negative); Leukocyte 25 Leu/uL (Negative); Nitrite Negative (Negative); Pregnancy Test - Urine (BHCG) Negative (Negative); Pregu Control Background? CLEAR/WHITE (CLR/WHITE); Pregu Control Bar Appear? YES (CONTROL BAR); Protein, Urine (Dipstick) Negative (Neg-Trace); RBC/HPF 0-3 HPF (0-3); Specific Gravity 1.004 (1.002-1.036); Specific Gravity, Urine 1.004 (1.002-1.036); Urobilinogen Normal mg/dL (Less than 2); WBC/HPF 0-3 HPF (0-3); pH, Urine 5.5 (5.0-9.0)
[2022-05-14 14:03] LABS: Amphetamine Not Detected (NotDetected); Barbiturates Screen Not Detected (NotDetected); Benzodiazepine Screen Not Detected (NotDetected); Cocaine Metabolite Screen Not Detected (NotDetected); Methadone Not Detected (NotDetected); Methamphetamine Not Detected (NotDetected); Opiate Screen Not Detected (NotDetected); Oxycodone Screen Not Detected (NotDetected); Phencyclidine (PCP) Not Detected (NotDetected); THC/Cannabinoid Screen Not Detected (NotDetected); Tricyclic Screen Not Detected (NotDetected)
[2022-05-14 14:13] LABS: #Eosinphils 0.1 thou/uL (0.0-0.7); #Monocytes 0.3 thou/uL (0.11-0.59); #Neutrophils 3.8 thou/uL (1.40-6.50); %Basophils 0.6 % (0.0-1.0); %Eosinophils 0.7 % (0.0-10.0); %Lymphocytes 41.6 % (21.0-51.0); %Monocytes 4.1 % (0.0-10.0); Mean Corpuscular HGB CONC 32.9 g/dL (32.0-36.0); Mean Corpuscular Hemoglobin 32.8 pg (27.0-31.0); Mean Corpuscular Volume 99.6 fL (78.0-98.0); Mean Platelet Volume 7.8 fL (7.4-10.4); Platelet Count 323 thou/uL (130-400); RBC Distribution Width 13.4 % (11.5-14.5); Red Blood Cell (RBC) Count 4.58 mill/uL (4.20-5.40); White Blood Cell (WBC) Count 7.3 thou/uL (4.8-10.8)
[2022-05-14] MEDS ORDERED: Morphine 4 MG/ML VIAL ONE (14:20)
[2022-05-14] MEDS ORDERED: Bacitracin 1 PK ONE (14:20)
[2022-05-14 14:35] LABS: ALT (SGPT) 42 U/L (8-55); AST (SGOT) 24 U/L (5-34); Albumin 4.7 g/dL (3.5-5.0); Alkaline Phosphatase 110 U/L (40-110); Anion Gap 20 mmol/L (10-20); BUN (Urea Nitrogen) 9 mg/dL (7.0-18.7); Bilirubin, Total 1.4 mg/dL (0.2-1.2); CK (CPK) 63 U/L (29-168); Calc. Creatinine Clearance 0 mL/min (70-130); Calcium 9.8 mg/dL (7.8-10.44); Carbon Dioxide 16 mmol/L (22-29); Chloride 107 mmol/L (98-107); Estimated GFR 115; Globulin 3.9 g/dL (2.4-3.5); Glucose 85 mg/dL (70-105); Protein, Total 8.6 g/dL (6.0-8.3); Sodium 139 mmol/L (136-145)
[2022-05-14 14:38] LABS: Acetaminophen Less than 10.0 mcg/mL (10.0-30.0); Alcohol 223 mg/dL (Less than 10); Lipase 106 U/L (8-78); Salicylate Less than 8.0 mg/dL (15.0-30.0)
[2022-05-14] MEDS ORDERED: Fentanyl 100 MCG/2 ML VIAL ONE (16:28)
[2022-05-14 17:29] LABS: SARS-CoV-2 NAA Rapid Test Not Detected (NotDetected)
[2022-05-14] MEDS ORDERED: Nicotine 21 MG PATCH TOP SCH (18:30)
[2022-05-14] MEDS ORDERED: HYDROcodone/Acetaminophen 5/325 mg Tablet ONE ×2 (19:36→21:55)
== END 2022-05-15 00:15 | disposition home or self-care (01) ==
LOC: ERS 13:13
DX: S32.049A Unspecified fracture of fourth lumbar vertebra, initial encounter for closed fracture (principal); R45.851 Suicidal ideations; V89.9XXA Person injured in unspecified vehicle accident, initial encounter; Z20.822 Contact with and (suspected) exposure to COVID-19
CPT/HCPCS: 36415; 74177; 80053; 80306; 80307; 81003; 81015; 81025; 82550; 83690; 84443; 85025; 96374; 96375; J2270; J3010; Q9967; U0002